=== PATIENT | male | born 1945 | race Caucasian/White ===

== ENCOUNTER → 2017-03-19 | Outpatient (CLI) | payer MEDICARE ==
[2017-03-19 08:16] LABS: CH 32.4; CHCM 33.7; HCT 40.4 % (39.0-53.0); HDW 2.55; HGB 13.4 gm/dL (13.0-17.5); MCHC 33.1 g/dL (31.0-37.0); MCV 96.5 fL (80.0-100.0); Mean Platelet Volume 7.8; RBC 4.18 m/uL (4.30-5.90); RDW 12.9 % (11.5-15.5); WBC 6.7 k/uL (3.8-10.6)
[2017-03-19 08:17] LABS: Appearance,Urine Clear (Clear); Bilirubin,Urine Negative (Negative); Glucose,Urine (UA) Trace (Negative); Ketones,Urine Negative (Negative); Leukocyte Esterase,Urine Negative (Negative); Nitrite,Urine Negative (Negative); PH, Urine 5.5 (5.0-8.0); Protein,Urine Negative (Negative); Specific Gravity,Urine 1.015 (1.001-1.035); UA Billing (MACRO vs. MICRO) CHEM; Urobilinogen,Urine <2.0 mg/dL (<2.0)
[2017-03-19 08:23] LABS: INR 1.1 (<1.2); Partial Thromboplastin Time 24.2 sec (22.0-30.0); Prothrombin Time 10.9 sec (9.0-12.0)
[2017-03-19 08:37] LABS: Calcium 10.4 mg/dL (8.4-10.2); Potassium 4.4 mmol/L (3.5-5.1); Total Bilirubin 0.6 mg/dL (0.2-1.3); Total Protein 7.7 g/dL (6.3-8.2)
== END | disposition home or self-care (01) ==
LOC: LABPAT 07:23
PROVIDERS: ATTEND Orthopaedic Surgery Sports Medicine
DX: Z01.818 Encounter for other preprocedural examination (principal); Z79.01 Long term (current) use of anticoagulants; M19.90 Unspecified osteoarthritis, unspecified site
CPT/HCPCS: 36415; 80053; 81003; 85027; 85610; 85730; 87070

== ENCOUNTER → 2018-10-10 | Outpatient (CLI) | payer MEDICARE ==
--- NOTE | 2018-10-10 11:50 | XR ---
EXAMINATION TYPE: XR chest 2V DATE OF EXAM: 10/10/2018 COMPARISON: Prior chest x-ray dated 10/20/2011 and rib series dated 10/20/2011 HISTORY: Contusion, anterior rib pain TECHNIQUE: Frontal and lateral views of the chest are obtained. FINDINGS: There is no focal air space opacity, pleural effusion, or pneumothorax seen. The cardiac silhouette size is within normal limits. The osseous structures are intact. IMPRESSION: No acute cardiopulmonary process. Bone scan may be of increased sensitivity.
== END | disposition home or self-care (01) ==
LOC: RADXRMAIN 08:57
PROVIDERS: ATTEND Internal Medicine Geriatric Medicine
DX: R05 Cough (principal)
CPT/HCPCS: 71046

== ENCOUNTER 2018-10-15 12:03 | Emergency (ER) | payer MEDICARE ==
[2018-10-15 12:09] VITALS: TEMP 98.4
[2018-10-15] MEDS ORDERED: SODIUM CHLORIDE 0.9% 500 ML 500 ML IV ONE (12:30)
--- NOTE | 2018-10-15 12:48 | ED ---
General Adult HPI - General Chief complaint: GI Bleed Stated complaint: Abn labs Source: patient, RN notes reviewed Mode of arrival: ambulatory Limitations: no limitations - History of Present Illness Initial comments: This is a 73-year-old male who presents emergency Department complaining of not feeling well for a week per patient states she's had no appetite he's losing a little bit of weight and he feels extremely weak. Patient states he went to his doctor's office they told him his liver enzymes were elevated and he was to follow-up in the emergency department. Patient denies any nausea vomiting or diarrhea. Patient denies black or bloody stools. Patient denies any lightheadedness dizziness or near syncopal episode. Patient denies any chest pain difficulty breathing shortness of breath. - Related Data Home Medications Medication Instructions Recorded Confirmed Cetirizine HCl 10 mg PO DAILY 03/26/17 10/15/18 Febuxostat [Uloric] 80 mg PO QAM 03/26/17 10/15/18 Fenofibrate Nanocrystallized 145 mg PO HS 03/26/17 10/15/18 [Fenofibrate] Gabapentin [Neurontin] 600 mg PO HS 03/26/17 10/15/18 Latanoprost Ophth [Xalatan 0.005%] 1 drops BOTH EYES DAILY 03/26/17 10/15/18 Lisinopril-Hctz 20-12.5 mg 1 tab PO BID 03/26/17 10/15/18 [Zestoretic 20-12.5] Niacin 500 mg PO DAILY 03/26/17 10/15/18 Pantoprazole [Protonix] 40 mg PO QAM 03/26/17 10/15/18 Tamsulosin [Flomax] 0.4 mg PO DAILY 03/26/17 10/15/18 Timolol 0.5% Ophth Soln [Timoptic 1 drop BOTH EYES BID 03/26/17 10/15/18 0.5% Ophth Soln] Amoxicillin 500 mg PO TID 10/15/18 10/15/18 Aspirin [[place] Aspirin EC] 81 mg PO DAILY 10/15/18 10/15/18 Cholecalciferol (Vitamin D3) 2,000 unit PO DAILY 10/15/18 10/15/18 [Vitamin D3] Colchicine [Colcrys] 0.6 mg PO DAILY PRN 10/15/18 10/15/18 methylPREDNISolone Dose Pack See Taper PO DAILY 10/15/18 10/15/18 [Medrol Dose Pack] Allergies Allergy/AdvReac Type Severity Reaction Status Date / Time monosodium glutamate [MSG] Allergy Diarrhea Verified 10/15/18 13:02 Review of Systems ROS Statement: Those systems with pertinent positive or pertinent negative responses have been documented in the HPI. ROS Other: All systems not noted in ROS Statement are negative. Past Medical History Past Medical History: Eye Disorder, GERD/Reflux, Hyperlipidemia, Hypertension, Osteoarthritis (OA), Syncope Additional Past Medical History / Comment(s): Bilateral glaucoma. Hx fainting episode 4 yrs ago, thinks due to dehydration. Hx Prostate infection yrs ago. History of Any Multi-Drug Resistant Organisms: None Reported Past Surgical History: Orthopedic Surgery Additional Past Surgical History / Comment(s): Right knee surgery X3. Additional Past Anesthesia/Blood Transfusion Reaction / Comment(s): Had a spinal with 1st knee surgery and had difficulty urinating after. Past Psychological History: No Psychological Hx Reported Smoking Status: Former smoker Past Alcohol Use History: Occasional Past Drug Use History: None Reported - Past Family History Father Family Medical History: Cancer General Exam - General Exam Comments Initial Comments: GENERAL: Patient is well-developed and well-nourished. Patient is nontoxic and well- hydrated and is in no acute distress. ENT: Neck is soft and supple. No significant lymphadenopathy is noted. Oropharynx is clear. Moist mucous membranes. Neck has full range of motion without eliciting any pain. EYES: The sclera were anicteric and conjunctiva were pink and moist. Extraocular movements were intact and pupils were equal round and reactive to light. Eyelids were unremarkable. PULMONARY: Unlabored respirations. Good breath sounds bilaterally. No audible rales rhonchi or wheezing was noted. CARDIOVASCULAR: There is a regular rate and rhythm without any murmurs gallops or rubs. ABDOMEN: Soft and nontender with normal bowel sounds. No palpable organomegaly was noted. There is no palpable pulsatile mass. SKIN: Pale NEUROLOGIC: Patient is alert and oriented x3. Cranial nerves II through XII are grossly intact. Motor and sensory are also intact. Normal speech, volume and content. Symmetrical smile. MUSCULOSKELETAL: Normal extremities with adequate strength and full range of motion. No lower extremity swelling or edema. No calf tenderness. LYMPHATICS: No significant lymphadenopathy is noted PSYCHIATRIC: Normal psychiatric evaluation. Limitations: no limitations Course Vital Signs 10/15/18 10/15/18 10/15/18 12:06 12:55 14:32 Temperature 98.4 F Pulse Rate 111 H 102 H 101 H Respiratory 20 18 18 Rate Blood Pressure 129/79 137/87 136/81 O2 Sat by Pulse 97 96 98 Oximetry Medical Decision Making - Medical Decision Making EKG shows normal sinus rhythm at 97 bpm PA interval is 208 QRSs 138 QT interval 362 QTC is 459. Patient's EKG shows right bundle branch block. Computed tomography scan shows hepatomegaly spot megaly. Abdomen is a was negative. Heterophile was negative. I spoke with Dr. Richardson he agreed the patient should follow-up as an outpatient. - Lab Data Result diagrams: 10/15/18 12:42 10/15/18 12:42 Lab Results 10/15/18 10/15/18 10/15/18 Range/Units 12:42 12:42 12:42 WBC 8.2 (3.8-10.6) k/uL RBC 3.48 L (4.30-5.90) m/uL Hgb 10.8 L (13.0-17.5) gm/dL Hct 31.8 L (39.0-53.0) % MCV 91.4 (80.0-100.0) fL MCH 31.0 (25.0-35.0) pg MCHC 33.9 (31.0-37.0) g/dL RDW 14.8 (11.5-15.5) % Plt Count 349 (150-450) k/uL Neutrophils % (Manual) 55 % Band Neutrophils % 3 % Lymphocytes % (Manual) 30 % Monocytes % (Manual) 11 % Eosinophils % (Manual) 1 % Metamyelocytes % 1 % Myelocytes % 1 % Neutrophils # (Manual) 4.70 (1.3-7.7) k/uL Lymphocytes # (Manual) 2.46 (1.0-4.8) k/uL Monocytes # (Manual) 0.90 (0-1.0) k/uL Eosinophils # (Manual) 0.08 (0-0.7) k/uL Metamyelocytes # (Man) 0.08 H (0) k/uL Myelocytes # (Manual) 0.08 H (0) k/uL Nucleated RBCs 0 (0-0) /100 WBC Manual Slide Review Performed RBC Morphology Normal PT 10.8 (9.0-12.0) sec INR 1.0 (<1.2) APTT 26.2 (22.0-30.0) sec Sodium 133 L (137-145) mmol/L Potassium 4.4 (3.5-5.1) mmol/L Chloride 98 (98-107) mmol/L Carbon Dioxide 24 (22-30) mmol/L Anion Gap 11 mmol/L BUN 26 H (9-20) mg/dL Creatinine 1.57 H (0.66-1.25) mg/dL Est GFR (CKD-EPI)AfAm 50 (>60 ml/min/1.73 sqM) Est GFR (CKD-EPI)NonAf 44 (>60 ml/min/1.73 sqM) Glucose 129 H (74-99) mg/dL Calcium 9.5 (8.4-10.2) mg/dL Magnesium 1.9 (1.6-2.3) mg/dL Total Bilirubin 1.5 H (0.2-1.3) mg/dL AST 165 H (17-59) U/L ALT 389 H (21-72) U/L Alkaline Phosphatase 83 (38-126) U/L Total Protein 7.7 (6.3-8.2) g/dL Albumin 4.1 (3.5-5.0) g/dL Urine Color Urine Appearance (Clear) Urine pH (5.0-8.0) Ur Specific [place] (1.001-1.035) Urine Protein (Negative) Urine Glucose (UA) (Negative) Urine Ketones (Negative) Urine Blood (Negative) Urine Nitrite (Negative) Urine Bilirubin (Negative) Urine Urobilinogen (<2.0) mg/dL Ur Leukocyte Esterase (Negative) Stool Occult Blood (Negative) Hepatitis A IgM Ab Heterophile Antibody (Negative) 10/15/18 10/15/18 10/15/18 Range/Units 12:42 13:11 13:15 WBC (3.8-10.6) k/uL RBC (4.30-5.90) m/uL Hgb (13.0-17.5) gm/dL Hct (39.0-53.0) % MCV (80.0-100.0) fL MCH (25.0-35.0) pg MCHC (31.0-37.0) g/dL RDW (11.5-15.5) % Plt Count (150-450) k/uL Neutrophils % (Manual) % Band Neutrophils % % Lymphocytes % (Manual) % Monocytes % (Manual) % Eosinophils % (Manual) % Metamyelocytes % % Myelocytes % % Neutrophils # (Manual) (1.3-7.7) k/uL Lymphocytes # (Manual) (1.0-4.8) k/uL Monocytes # (Manual) (0-1.0) k/uL Eosinophils # (Manual) (0-0.7) k/uL Metamyelocytes # (Man) (0) k/uL Myelocytes # (Manual) (0) k/uL Nucleated RBCs (0-0) /100 WBC Manual Slide Review RBC Morphology PT (9.0-12.0) sec INR (<1.2) APTT (22.0-30.0) sec Sodium (137-145) mmol/L Potassium (3.5-5.1) mmol/L Chloride (98-107) mmol/L Carbon Dioxide (22-30) mmol/L Anion Gap mmol/L BUN (9-20) mg/dL Creatinine (0.66-1.25) mg/dL Est GFR (CKD-EPI)AfAm (>60 ml/min/1.73 sqM) Est GFR (CKD-EPI)NonAf (>60 ml/min/1.73 sqM) Glucose (74-99) mg/dL Calcium (8.4-10.2) mg/dL Magnesium (1.6-2.3) mg/dL Total Bilirubin (0.2-1.3) mg/dL AST (17-59) U/L ALT (21-72) U/L Alkaline Phosphatase (38-126) U/L Total Protein (6.3-8.2) g/dL Albumin (3.5-5.0) g/dL Urine Color Yellow Urine Appearance Clear (Clear) Urine pH 6.5 (5.0-8.0) Ur Specific [place] 1.010 (1.001-1.035) Urine Protein Negative (Negative) Urine Glucose (UA) Negative (Negative) Urine Ketones Negative (Negative) Urine Blood Negative (Negative) Urine Nitrite Negative (Negative) Urine Bilirubin Negative (Negative) Urine Urobilinogen 3.0 (<2.0) mg/dL Ur Leukocyte Esterase Negative (Negative) Stool Occult Blood Negative (Negative) Hepatitis A IgM Ab Heterophile Antibody Negative (Negative) 10/15/18 Range/Units 14:52 WBC (3.8-10.6) k/uL RBC (4.30-5.90) m/uL Hgb (13.0-17.5) gm/dL Hct (39.0-53.0) % MCV (80.0-100.0) fL MCH (25.0-35.0) pg MCHC (31.0-37.0) g/dL RDW (11.5-15.5) % Plt Count (150-450) k/uL Neutrophils % (Manual) % Band Neutrophils % % Lymphocytes % (Manual) % Monocytes % (Manual) % Eosinophils % (Manual) % Metamyelocytes % % Myelocytes % % Neutrophils # (Manual) (1.3-7.7) k/uL Lymphocytes # (Manual) (1.0-4.8) k/uL Monocytes # (Manual) (0-1.0) k/uL Eosinophils # (Manual) (0-0.7) k/uL Metamyelocytes # (Man) (0) k/uL Myelocytes # (Manual) (0) k/uL Nucleated RBCs (0-0) /100 WBC Manual Slide Review RBC Morphology PT (9.0-12.0) sec INR (<1.2) APTT (22.0-30.0) sec Sodium (137-145) mmol/L Potassium (3.5-5.1) mmol/L Chloride (98-107) mmol/L Carbon Dioxide (22-30) mmol/L Anion Gap mmol/L BUN (9-20) mg/dL Creatinine (0.66-1.25) mg/dL Est GFR (CKD-EPI)AfAm (>60 ml/min/1.73 sqM) Est GFR (CKD-EPI)NonAf (>60 ml/min/1.73 sqM) Glucose (74-99) mg/dL Calcium (8.4-10.2) mg/dL Magnesium (1.6-2.3) mg/dL Total Bilirubin (0.2-1.3) mg/dL AST (17-59) U/L ALT (21-72) U/L Alkaline Phosphatase (38-126) U/L Total Protein (6.3-8.2) g/dL Albumin (3.5-5.0) g/dL Urine Color Urine Appearance (Clear) Urine pH (5.0-8.0) Ur Specific [place] (1.001-1.035) Urine Protein (Negative) Urine Glucose (UA) (Negative) Urine Ketones (Negative) Urine Blood (Negative) Urine Nitrite (Negative) Urine Bilirubin (Negative) Urine Urobilinogen (<2.0) mg/dL Ur Leukocyte Esterase (Negative) Stool Occult Blood (Negative) Hepatitis A IgM Ab NEGATIVE Heterophile Antibody (Negative) Disposition Clinical Impression: Weakness Disposition: HOME SELF-CARE Condition: Good Instructions (If sedation given, give patient instructions): Weakness (ED) Is patient prescribed a controlled substance at d/c from ED?: No Referrals: Herbie Langford MD [Primary Care Provider] - 1-2 days Time of Disposition: 16:13
[2018-10-15 12:56] VITALS: RESP 18
[2018-10-15 13:07] LABS: Albumin 4.1 g/dL (3.5-5.0); Calcium 9.5 mg/dL (8.4-10.2); Magnesium 1.9 mg/dL (1.6-2.3); Potassium 4.4 mmol/L (3.5-5.1); Total Bilirubin 1.5 mg/dL (0.2-1.3); Total Protein 7.7 g/dL (6.3-8.2)
[2018-10-15 13:08] LABS: HCT 31.8 % (39.0-53.0); HGB 10.8 gm/dL (13.0-17.5); MCHC 33.9 g/dL (31.0-37.0); MCV 91.4 fL (80.0-100.0); Mean Platelet Volume 7.6; Platelet Count 349 k/uL (150-450); RBC 3.48 m/uL (4.30-5.90); RDW 14.8 % (11.5-15.5); WBC 8.2 k/uL (3.8-10.6)
[2018-10-15 13:14] LABS: Partial Thromboplastin Time 26.2 sec (22.0-30.0); Prothrombin Time 10.8 sec (9.0-12.0)
[2018-10-15 13:49] LABS: Appearance,Urine Clear (Clear); Bilirubin,Urine Negative (Negative); Blood,Urine Negative (Negative); Color,Urine Yellow; Glucose,Urine (UA) Negative (Negative); Ketones,Urine Negative (Negative); Leukocyte Esterase,Urine Negative (Negative); Nitrite,Urine Negative (Negative); PH, Urine 6.5 (5.0-8.0); Protein,Urine Negative (Negative)
[2018-10-15 14:14] LABS: Band Neutrophils % 3 %; Eosinophils # (M) 0.08 k/uL (0-0.7); Lymphocytes # (M) 2.46 k/uL (1.0-4.8); Metamyelocytes # (M) 0.08 k/uL (0); Metamyelocytes % 1 %; Myelocytes # (M) 0.08 k/uL (0); Myelocytes % 1 %; Neutrophils % (M) 55 %; Nucleated Red Blood Cells 0 /100 WBC (0-0); Total Cells Counted 200
[2018-10-15 14:33] VITALS: PULSE 101
--- NOTE | 2018-10-15 14:35 | CT ---
EXAMINATION TYPE: CT abdomen pelvis w con DATE OF EXAM: 10/15/2018 COMPARISON: None HISTORY: Abnormal Labwork CT DLP: 1078 mGycm CONTRAST: CT scan of the abdomen and pelvis is performed without Oral Contrast and with IV Contrast, patient in jected with 80 mL of Isovue 300. FINDINGS: LUNG BASES-: No visible nodule. No infiltrate. LIVER/GB: No calcified gallstones. There is evidence of hepatic steatosis with hepatic enlargement noted. No space occupying hepatic lesion. Biliary tree is of normal caliber. PANCREAS: No inflammation. No distinct mass. SPLEEN: Cardiomegaly with craniocaudal measurement of 14.9 cm. No lesion seen. ADRENALS: No nodule. No thickening. KIDNEYS/BLADDER: No hydronephrosis. No nephrolithiasis. No distinct renal mass. Urinary bladder g rossly unremarkable. BOWEL: Normal appendix. Normal bowel caliber. No inflammation. Sigmoid diverticulosis without diver ticulitis. GENITAL ORGANS: No gross abnormality. LYMPH NODES: No greater than 1cm abdominal or pelvic lymph nodes are appreciated. AORTA: No significant abnormality. OSSEOUS STRUCTURES: No significant abnormality is seen. OTHER: No significant additional abnormality is seen. IMPRESSION: 1. Sigmoid diverticulosis without diverticulitis. 2. Hepatic steatosis with hepatomegaly. 3. Splenomegaly.
[2018-10-15 15:37] LABS: Hepatitis A AB IgM Index 0.01; Hepatitis A Antibody IgM NEGATIVE
[2018-10-15 16:51] VITALS: BP 137/80
[2018-10-16 04:34] LABS: Hepatitis B Core IgM Reactive (Non-Reactive)
== END 2018-10-15 16:25 | disposition home or self-care (01) ==
LOC: EC 12:03
DX: R53.1 Weakness (principal); R16.0 Hepatomegaly, not elsewhere classified; K92.2 Gastrointestinal hemorrhage, unspecified; I45.10 Unspecified right bundle-branch block; K21.9 Gastro-esophageal reflux disease without esophagitis; I10 Essential (primary) hypertension; E78.5 Hyperlipidemia, unspecified; H40.9 Unspecified glaucoma; Z87.891 Personal history of nicotine dependence; Z79.82 Long term (current) use of aspirin; Z79.52 Long term (current) use of systemic steroids; Z79.899 Other long term (current) drug therapy; Z88.8 Allergy status to other drugs, medicaments and biological substances
CPT/HCPCS: 99284; 96360; 36415; 93005; 80053; 80074; 83735; 85025; 85610; 85730; 86308; 82272; 81003; 74177; Q9967

== ENCOUNTER 2018-10-18 10:30 | Observation (INO) | payer MEDICARE ==
[2018-10-18] MEDS ORDERED: SODIUM CHLORIDE 0.9% 500 ML 500 ML IV ONE ×2 (10:59→13:18)
--- NOTE | 2018-10-18 11:34 | XR ---
EXAMINATION TYPE: XR chest 2V DATE OF EXAM: 10/18/2018 COMPARISON: Prior chest x-ray 10/10/2018 HISTORY: Difficulty breathing TECHNIQUE: Frontal and lateral views of the chest are obtained. FINDINGS: There are overlying cardiac leads. There is no focal air space opacity, pleural effusion, o r pneumothorax seen. The cardiac silhouette size is within normal limits. The osseous structures a re intact. IMPRESSION: No acute cardiopulmonary process.
--- NOTE | 2018-10-18 11:42 | ED ---
General Adult HPI - General Chief complaint: Weakness Stated complaint: Weakness Time Seen by Provider: 10/18/18 10:41 Source: patient, EMS, RN notes reviewed, old records reviewed Mode of arrival: EMS Limitations: no limitations - History of Present Illness Initial comments: 73-year-old male presented for evaluation generalized weakness and fatigue. P bertrand has had several weeks of increased fatigue. Over the past 4 days he has had severe generalized weakness. He was recently diagnosed with hepatitis B. He's had nausea with no abdominal pain. No vomiting. He denies chest pain. He states he does have exertional dyspnea. Denies lower extremity pain or swelling. Denies rash. - Related Data Home Medications Medication Instructions Recorded Confirmed Cetirizine HCl 10 mg PO DAILY 03/26/17 10/18/18 Febuxostat [Uloric] 80 mg PO QAM 03/26/17 10/18/18 Fenofibrate Nanocrystallized 145 mg PO HS 03/26/17 10/18/18 [Fenofibrate] Gabapentin [Neurontin] 600 mg PO HS 03/26/17 10/18/18 Latanoprost Ophth [Xalatan 0.005%] 1 drops BOTH EYES HS 03/26/17 10/18/18 Lisinopril-Hctz 20-12.5 mg 1 tab PO BID 03/26/17 10/18/18 [Zestoretic 20-12.5] Niacin 500 mg PO DAILY 03/26/17 10/18/18 Pantoprazole [Protonix] 40 mg PO DAILY 03/26/17 10/18/18 Tamsulosin [Flomax] 0.4 mg PO DAILY 03/26/17 10/18/18 Aspirin [[place] Aspirin EC] 81 mg PO DAILY 10/15/18 10/18/18 Cholecalciferol (Vitamin D3) 2,000 unit PO DAILY 10/15/18 10/18/18 [Vitamin D3] Colchicine [Colcrys] 0.6 mg PO DAILY PRN 10/15/18 10/18/18 methylPREDNISolone Dose Pack See Taper PO DAILY 10/15/18 10/18/18 [Medrol Dose Pack] Loteprednol Etabonate [Alrex] 1 drop RIGHT EYE TID 10/18/18 10/18/18 Allergies Allergy/AdvReac Type Severity Reaction Status Date / Time monosodium glutamate [MSG] AdvReac Diarrhea Verified 10/18/18 11:39 Review of Systems ROS Statement: Those systems with pertinent positive or pertinent negative responses have been documented in the HPI. ROS Other: All systems not noted in ROS Statement are negative. Past Medical History Past Medical History: Eye Disorder, GERD/Reflux, Hyperlipidemia, Hypertension, Osteoarthritis (OA), Syncope Additional Past Medical History / Comment(s): Bilateral glaucoma. Hx fainting episode 4 yrs ago, thinks due to dehydration. Hx Prostate infection yrs ago. History of Any Multi-Drug Resistant Organisms: None Reported Past Surgical History: Orthopedic Surgery Additional Past Surgical History / Comment(s): Right knee surgery X3. Additional Past Anesthesia/Blood Transfusion Reaction / Comment(s): Had a spinal with 1st knee surgery and had difficulty urinating after. Past Psychological History: No Psychological Hx Reported Smoking Status: Former smoker Past Alcohol Use History: Occasional Past Drug Use History: None Reported - Past Family History Father Family Medical History: Cancer General Exam Limitations: no limitations General appearance: alert, in no apparent distress Head exam: Present: atraumatic, normocephalic Eye exam: Present: normal appearance, PERRL ENT exam: Present: normal exam Neck exam: Present: normal inspection. Absent: tenderness, meningismus Respiratory exam: Present: normal lung sounds bilaterally. Absent: respiratory distress, wheezes Cardiovascular Exam: Present: regular rate, normal rhythm GI/Abdominal exam: Present: soft. Absent: distended, tenderness, guarding Extremities exam: Present: normal inspection, normal capillary refill. Absent: pedal edema Back exam: Present: normal inspection, full ROM Neurological exam: Present: alert, oriented X3, CN II-XII intact. Absent: motor sensory deficit Psychiatric exam: Present: normal affect, normal mood Skin exam: Present: warm, dry, intact. Absent: cyanosis, diaphoretic Course Vital Signs 10/18/18 10:39 Temperature 98.2 F Pulse Rate 100 Respiratory 17 Rate Blood Pressure 140/92 O2 Sat by Pulse 100 Oximetry EKG Findings - EKG Comments: EKG Findings:: EKG: Normal sinus rhythm, right bundle branch block, rate 97, MN interval 182, QRS duration 126, QTC 444, no ST segment elevation Medical Decision Making - Medical Decision Making 73-year-old male presenting with generalized weakness, dehydration. History of recent hepatitis B diagnosis. He does have mildly elevated transaminitis although these are down trending. Bilirubin is normal. Hemoglobin stable, no leukocytosis. Patient's given IV hydration emergency department. He is evaluated by Dr. Richardson, in the emergency department and will be admitted for further evaluation and treatment. Gastroenterology placed on consult. - Lab Data Result diagrams: 10/18/18 11:06 10/18/18 11:06 Lab Results 10/18/18 10/18/18 10/18/18 Range/Units 11:06 11:06 11:06 WBC 10.1 (3.8-10.6) k/uL RBC 3.65 L (4.30-5.90) m/uL Hgb 11.6 L (13.0-17.5) gm/dL Hct 34.0 L (39.0-53.0) % MCV 93.2 (80.0-100.0) fL MCH 31.9 (25.0-35.0) pg MCHC 34.2 (31.0-37.0) g/dL RDW 15.9 H (11.5-15.5) % Plt Count 410 (150-450) k/uL Neutrophils % (Manual) 66 % Band Neutrophils % 1 % Lymphocytes % (Manual) 26 % Monocytes % (Manual) 6 % Eosinophils % (Manual) 1 % Metamyelocytes % 1 % Myelocytes % 1 % Neutrophils # (Manual) 6.70 (1.3-7.7) k/uL Lymphocytes # (Manual) 2.63 (1.0-4.8) k/uL Monocytes # (Manual) 0.61 (0-1.0) k/uL Eosinophils # (Manual) 0.10 (0-0.7) k/uL Metamyelocytes # (Man) 0.10 H (0) k/uL Myelocytes # (Manual) 0.10 H (0) k/uL Nucleated RBCs 0 (0-0) /100 WBC Manual Slide Review Performed Poikilocytosis (manual Present Anisocytosis (manual) Present PT (9.0-12.0) sec INR (<1.2) APTT (22.0-30.0) sec Sodium 133 L (137-145) mmol/L Potassium 4.1 (3.5-5.1) mmol/L Chloride 100 (98-107) mmol/L Carbon Dioxide 20 L (22-30) mmol/L Anion Gap 13 mmol/L BUN 35 H (9-20) mg/dL Creatinine 1.49 H (0.66-1.25) mg/dL Est GFR (CKD-EPI)AfAm 54 (>60 ml/min/1.73 sqM) Est GFR (CKD-EPI)NonAf 46 (>60 ml/min/1.73 sqM) Glucose 118 H (74-99) mg/dL Plasma Lactic Acid Jet (0.7-2.0) mmol/L Calcium 9.9 (8.4-10.2) mg/dL Magnesium 1.8 (1.6-2.3) mg/dL Total Bilirubin 1.1 (0.2-1.3) mg/dL AST 54 (17-59) U/L ALT 181 H (21-72) U/L Alkaline Phosphatase 66 (38-126) U/L Troponin I (0.000-0.034) ng/mL NT-Pro-B Natriuret Pep 88 pg/mL Total Protein 8.0 (6.3-8.2) g/dL Albumin 4.3 (3.5-5.0) g/dL Urine Color Urine Appearance (Clear) Urine pH (5.0-8.0) Ur Specific [place] (1.001-1.035) Urine Protein (Negative) Urine Glucose (UA) (Negative) Urine Ketones (Negative) Urine Blood (Negative) Urine Nitrite (Negative) Urine Bilirubin (Negative) Urine Urobilinogen (<2.0) mg/dL Ur Leukocyte Esterase (Negative) 10/18/18 10/18/18 10/18/18 Range/Units 11:06 11:06 11:06 WBC (3.8-10.6) k/uL RBC (4.30-5.90) m/uL Hgb (13.0-17.5) gm/dL Hct (39.0-53.0) % MCV (80.0-100.0) fL MCH (25.0-35.0) pg MCHC (31.0-37.0) g/dL RDW (11.5-15.5) % Plt Count (150-450) k/uL Neutrophils % (Manual) % Band Neutrophils % % Lymphocytes % (Manual) % Monocytes % (Manual) % Eosinophils % (Manual) % Metamyelocytes % % Myelocytes % % Neutrophils # (Manual) (1.3-7.7) k/uL Lymphocytes # (Manual) (1.0-4.8) k/uL Monocytes # (Manual) (0-1.0) k/uL Eosinophils # (Manual) (0-0.7) k/uL Metamyelocytes # (Man) (0) k/uL Myelocytes # (Manual) (0) k/uL Nucleated RBCs (0-0) /100 WBC Manual Slide Review Poikilocytosis (manual Anisocytosis (manual) PT 11.1 (9.0-12.0) sec INR 1.0 (<1.2) APTT 25.8 (22.0-30.0) sec Sodium (137-145) mmol/L Potassium (3.5-5.1) mmol/L Chloride (98-107) mmol/L Carbon Dioxide (22-30) mmol/L Anion Gap mmol/L BUN (9-20) mg/dL Creatinine (0.66-1.25) mg/dL Est GFR (CKD-EPI)AfAm (>60 ml/min/1.73 sqM) Est GFR (CKD-EPI)NonAf (>60 ml/min/1.73 sqM) Glucose (74-99) mg/dL Plasma Lactic Acid Jet 2.1 H* (0.7-2.0) mmol/L Calcium (8.4-10.2) mg/dL Magnesium (1.6-2.3) mg/dL Total Bilirubin (0.2-1.3) mg/dL AST (17-59) U/L ALT (21-72) U/L Alkaline Phosphatase (38-126) U/L Troponin I <0.012 (0.000-0.034) ng/mL NT-Pro-B Natriuret Pep pg/mL Total Protein (6.3-8.2) g/dL Albumin (3.5-5.0) g/dL Urine Color Urine Appearance (Clear) Urine pH (5.0-8.0) Ur Specific [place] (1.001-1.035) Urine Protein (Negative) Urine Glucose (UA) (Negative) Urine Ketones (Negative) Urine Blood (Negative) Urine Nitrite (Negative) Urine Bilirubin (Negative) Urine Urobilinogen (<2.0) mg/dL Ur Leukocyte Esterase (Negative) 10/18/18 Range/Units 11:06 WBC (3.8-10.6) k/uL RBC (4.30-5.90) m/uL Hgb (13.0-17.5) gm/dL Hct (39.0-53.0) % MCV (80.0-100.0) fL MCH (25.0-35.0) pg MCHC (31.0-37.0) g/dL RDW (11.5-15.5) % Plt Count (150-450) k/uL Neutrophils % (Manual) % Band Neutrophils % % Lymphocytes % (Manual) % Monocytes % (Manual) % Eosinophils % (Manual) % Metamyelocytes % % Myelocytes % % Neutrophils # (Manual) (1.3-7.7) k/uL Lymphocytes # (Manual) (1.0-4.8) k/uL Monocytes # (Manual) (0-1.0) k/uL Eosinophils # (Manual) (0-0.7) k/uL Metamyelocytes # (Man) (0) k/uL Myelocytes # (Manual) (0) k/uL Nucleated RBCs (0-0) /100 WBC Manual Slide Review Poikilocytosis (manual Anisocytosis (manual) PT (9.0-12.0) sec INR (<1.2) APTT (22.0-30.0) sec Sodium (137-145) mmol/L Potassium (3.5-5.1) mmol/L Chloride (98-107) mmol/L Carbon Dioxide (22-30) mmol/L Anion Gap mmol/L BUN (9-20) mg/dL Creatinine (0.66-1.25) mg/dL Est GFR (CKD-EPI)AfAm (>60 ml/min/1.73 sqM) Est GFR (CKD-EPI)NonAf (>60 ml/min/1.73 sqM) Glucose (74-99) mg/dL Plasma Lactic Acid Jet (0.7-2.0) mmol/L Calcium (8.4-10.2) mg/dL Magnesium (1.6-2.3) mg/dL Total Bilirubin (0.2-1.3) mg/dL AST (17-59) U/L ALT (21-72) U/L Alkaline Phosphatase (38-126) U/L Troponin I (0.000-0.034) ng/mL NT-Pro-B Natriuret Pep pg/mL Total Protein (6.3-8.2) g/dL Albumin (3.5-5.0) g/dL Urine Color Yellow Urine Appearance Clear (Clear) Urine pH 7.5 (5.0-8.0) Ur Specific [place] 1.010 (1.001-1.035) Urine Protein Negative (Negative) Urine Glucose (UA) Negative (Negative) Urine Ketones Negative (Negative) Urine Blood Negative (Negative) Urine Nitrite Negative (Negative) Urine Bilirubin Negative (Negative) Urine Urobilinogen <2.0 (<2.0) mg/dL Ur Leukocyte Esterase Negative (Negative) Disposition Clinical Impression: Weakness, Hepatitis Disposition: ADMITTED IP TO THIS [facility] Condition: Stable Is patient prescribed a controlled substance at d/c from ED?: No Referrals: Herbie Langford MD [Primary Care Provider] - 1-2 days Decision to Admit Reason: Admit from EC Decision Date: 10/18/18 Decision Time: 14:00
[2018-10-18 11:45] LABS: Appearance,Urine Clear (Clear); Bilirubin,Urine Negative (Negative); Blood,Urine Negative (Negative); Color,Urine Yellow; Glucose,Urine (UA) Negative (Negative); Ketones,Urine Negative (Negative); Leukocyte Esterase,Urine Negative (Negative); Nitrite,Urine Negative (Negative); PH, Urine 7.5 (5.0-8.0); Protein,Urine Negative (Negative); Urobilinogen,Urine <2.0 mg/dL (<2.0)
[2018-10-18 11:48] LABS: Partial Thromboplastin Time 25.8 sec (22.0-30.0); Prothrombin Time 11.1 sec (9.0-12.0)
[2018-10-18 11:53] LABS: Albumin 4.3 g/dL (3.5-5.0); Calcium 9.9 mg/dL (8.4-10.2); Magnesium 1.8 mg/dL (1.6-2.3); Potassium 4.1 mmol/L (3.5-5.1); Total Bilirubin 1.1 mg/dL (0.2-1.3)
[2018-10-18 11:59] LABS: HGB 11.6 gm/dL (13.0-17.5); MCH 31.9 pg (25.0-35.0); MCHC 34.2 g/dL (31.0-37.0); MCV 93.2 fL (80.0-100.0); Mean Platelet Volume 7.7; Platelet Count 410 k/uL (150-450); RBC 3.65 m/uL (4.30-5.90); RDW 15.9 % (11.5-15.5); WBC 10.1 k/uL (3.8-10.6)
[2018-10-18 12:23] LABS: Band Neutrophils % 1 %; Lymphocytes # (M) 2.63 k/uL (1.0-4.8); Metamyelocytes % 1 %; Monocytes # (M) 0.61 k/uL (0-1.0); Myelocytes % 1 %; Neutrophils % (M) 66 %; Nucleated Red Blood Cells 0 /100 WBC (0-0); Total Cells Counted 200
[2018-10-18 12:27] LABS: Anisocytosis (M) Present; Poikilocytosis (M) Present
[2018-10-18] MEDS ORDERED: NALOXONE 0.4 MG/ML 1 ML VIAL IV PRN (13:57)
[2018-10-18] MEDS: SODIUM CHLORIDE 0.9% 1,000 ML IV SCH (14:09)
[2018-10-18] MEDS ORDERED: COLCHICINE 0.6 MG EACH PO PRN (14:24)
--- NOTE | 2018-10-18 14:24 | P.HPIM ---
History of Present Illness H&P Date: 10/18/18 Chief Complaint: Generalized weakness/acute hepatitis B. This is a 73-year-old male one of Dr. Langford with a previous medical history significant for hypertension and hypertensive cardiovascular disease with left ventricular hypertrophy, hyperlipidemia, chronic kidney disease stage III, GERD, glaucoma, out, patient was recently diagnosed of having acute hepatitis be based on recent serology in the office with a positive hepatitis B core IgM, patient was seen earlier about a week ago in the office for what appears to be in acute sinusitis he was placed on oral antibiotic as well as Medrol Dosepak and he was seen in the emergency department at [facility] last week because of generalized fatigue and weakness patient was feeling extremely exhausted not able to do anything patient did have an elevation of AST and ALT that got better over the last few days however he was brought into the emergency department at [facility] today because she exhausted and not able to do anything at this point in time, his liver enzymes are better and he has no elevation of bilirubin and he has no elevation of ammonia level his albumin level as well as protein level and INR were normal, he appears to have mild icterus in the sclerae without significant jaundice in the body, patient will be admitted to the hospital for evaluation by gastroneurology. Review of Systems Constitutional: Reports fatigue, Reports lethargy, Reports malaise, Reports weakness, Denies chills, Denies chronic headaches Eyes: denies blurred vision, denies bulging eye, denies decreased vision, denies diplopia, denies discharge Ears: deny: decreased hearing Ears, nose, mouth and throat: Denies dysphagia, Denies neck lump, Denies swelling in throat, Denies sore throat Cardiovascular: Denies chest pain, Denies decreased exercise tolerance, Denies dyspnea on exertion, Denies leg edema, Denies lightheadedness, Denies rapid heart beat, Denies shortness of breath, Denies syncope Respiratory: Denies congestion, Denies cough, Denies cough with sputum, Denies home oxygen, Denies sleep apnea, Denies snoring, Denies wheezing Gastrointestinal: Reports abdominal pain, Reports diarrhea, Reports loss of appetite, Reports nausea, Denies belching, Denies BRBPR, Denies change in bowel habits, Denies excessive gas, Denies heartburn, Denies hematemesis, Denies hematochezia, Denies melena, Denies vomiting Musculoskeletal: Denies myalgias Musculoskeletal: absent: ankle pain, ankle stiffness, ankle swelling, elbow pain, elbow stiffness, elbow swelling, foot pain, foot stiffness, foot swelling, hand pain, hand stiffness, hand swelling, hip pain, hip stiffness, hip swelling, knee pain, knee stiffness, knee swelling, shoulder pain, shoulder stiffness, shoulder swelling, wrist pain, wrist stiffness, wrist swelling Integumentary: Denies pruritus, Denies rash Neurological: Reports weakness, Denies numbness Psychiatric: Denies anxiety, Denies depression Endocrine: Denies fatigue, Denies weight change Past Medical History Past Medical History: Eye Disorder, GERD/Reflux, Hyperlipidemia, Hypertension, O steoarthritis (OA), Prostate Disorder, Renal Disease, Syncope Additional Past Medical History / Comment(s): Bilateral glaucoma. Hx fainting episode 4 yrs ago, thinks due to dehydration. Hx Prostate infection yrs ago. History of Any Multi-Drug Resistant Organisms: None Reported Past Surgical History: Orthopedic Surgery Additional Past Surgical History / Comment(s): Right knee surgery X3. Additional Past Anesthesia/Blood Transfusion Reaction / Comment(s): Had a spinal with 1st knee surgery and had difficulty urinating after. Past Psychological History: No Psychological Hx Reported Smoking Status: Former smoker (Patient is smoking about a pack every day as well as over the years quit in 1969.) Past Alcohol Use History: Occasional Past Drug Use History: None Reported - Past Family History Father Family Medical History: Cancer (Father at age 62 from lung cancer related to asbestos.) Mother Family Medical History: Coronary Artery Disease (CAD) (Mother at age 95 from dementia she also had history of CAD and had a stent put and back in her 60s.) Brother(s) Family Medical History: No Reported History (Patient has 2 brothers no major medical problems.) Sister(s) Family Medical History: No Reported History (Patient has one sister no major medical problems.) Son(s) Family Medical History: No Reported History (Patient has one son no major medical problems.) Medications and Allergies Home Medications Medication Instructions Recorded Confirmed Type Cetirizine HCl 10 mg PO DAILY 03/26/17 10/18/18 History Febuxostat [Uloric] 80 mg PO QAM 03/26/17 10/18/18 History Fenofibrate Nanocrystallized 145 mg PO HS 03/26/17 10/18/18 History [Fenofibrate] Gabapentin [Neurontin] 600 mg PO HS 03/26/17 10/18/18 History Latanoprost Ophth [Xalatan 0.005%] 1 drops BOTH EYES HS 03/26/17 10/18/18 History Lisinopril-Hctz 20-12.5 mg 1 tab PO BID 03/26/17 10/18/18 History [Zestoretic 20-12.5] Niacin 500 mg PO DAILY 03/26/17 10/18/18 History Pantoprazole [Protonix] 40 mg PO DAILY 03/26/17 10/18/18 History Tamsulosin [Flomax] 0.4 mg PO DAILY 03/26/17 10/18/18 History Aspirin [[place] Aspirin EC] 81 mg PO DAILY 10/15/18 10/18/18 History Cholecalciferol (Vitamin D3) 2,000 unit PO DAILY 10/15/18 10/18/18 History [Vitamin D3] Colchicine [Colcrys] 0.6 mg PO DAILY PRN 10/15/18 10/18/18 History methylPREDNISolone Dose Pack See Taper PO DAILY 10/15/18 10/18/18 History [Medrol Dose Pack] Loteprednol Etabonate [Alrex] 1 drop RIGHT EYE TID 10/18/18 10/18/18 History Allergies Allergy/AdvReac Type Severity Reaction Status Date / Time monosodium glutamate [MSG] AdvReac Diarrhea Verified 10/18/18 11:39 Physical Exam Vitals: Vital Signs Temp Pulse Resp BP Pulse Ox 10/18/18 10:39 98.2 F 100 17 140/92 100 Intake and Output 10/17/18 10/18/18 10/18/18 22:59 06:59 14:59 Other: Weight 88.451 kg - Constitutional General appearance: average body habitus, no acute distress - EENT Eyes: abnormal pupil, EOMI, PERRLA, no ptosis, scleral icterus ENT: hearing grossly normal, NA/AT, normal oropharynx, no thrush Ears: bilateral: normal - Neck Neck: no lymphadenopathy, normal ROM, no rigidity, no stridor, no thyromegaly Carotids: bilateral: upstroke normal Thyroid: bilateral: normal size - Respiratory Respiratory: bilateral: diminished, negative: dullness, rales, rhonchi, wheezing, prolonged expiration, prolonged inspiration - Cardiovascular Rhythm: regular Heart sounds: normal: S1, S2 Abnormal Heart Sounds: no systolic murmur, no diastolic murmur, no rub, no S3 Gallop, no S4 Gallop, no click - Gastrointestinal General gastrointestinal: no distended, no hepatomegaly, normal bowel sounds, soft, no splenomegaly, tenderness (Right upper quadrant and left upper quadrant tenderness.), no umbilical hernia, no ventral hernia - Integumentary Integumentary: normal, normal turgor - Neurologic Neurologic: CNII-XII intact - Musculoskeletal Musculoskeletal: gait normal, generalized weakness, strength equal bilaterally - Psychiatric Psychiatric: A&O x's 3, appropriate affect, intact judgment & insight Results CBC & Chem 7: 10/18/18 11:06 10/18/18 11:06 Labs: Abnormal Lab Results - Last 24 Hours (Table) 10/18/18 10/18/18 10/18/18 Range/Units 11:06 11:06 11:06 RBC 3.65 L (4.30-5.90) m/uL Hgb 11.6 L (13.0-17.5) gm/dL Hct 34.0 L (39.0-53.0) % RDW 15.9 H (11.5-15.5) % Metamyelocytes # (Man) 0.10 H (0) k/uL Myelocytes # (Manual) 0.10 H (0) k/uL Sodium 133 L (137-145) mmol/L Carbon Dioxide 20 L (22-30) mmol/L BUN 35 H (9-20) mg/dL Creatinine 1.49 H (0.66-1.25) mg/dL Glucose 118 H (74-99) mg/dL Plasma Lactic Acid Jet 2.1 H* (0.7-2.0) mmol/L ALT 181 H (21-72) U/L Thrombosis Risk Factor Assmnt - DVT/VTE Prophylaxis DVT/VTE Prophylaxis: Pharmacologic Prophylaxis ordered, Mechanical Prophylaxis ordered Assessment and Plan Assessment: Assessment and plan: 1. Acute hepatitis B based on results of serology with positive hepatitis B c ore antibody IgM. Patient does not have an evidence of acute fulminant hepatitis at this time, he will be started on IV fluid in the form of normal saline at 75 mL an hour, patient will be seen in consultation by gastroenterology, ultrasound of the liver will be done, I spoke with the patient and his at the bedside that 95% of the patient will achieve complete remission without any treatment and he is unlikely to have a chronic carrier state due to his age as this is adversely related to the patient age, patient will be seen in consultation by hepatology for further recommendation. 2. Acute kidney injury and top of chronic kidney disease stage III. Change lisinopril hydrochlorothiazide to plain lisinopril and discontinue hydrochlorothiazide monitor the patient CMP. 3. Hypertension and hypertensive cardiovascular disease. Continue patient on lisinopril 20 mg orally twice every day. 4. History of gout. Continue patient on Uloric 80 mg orally once every day. 5. Enlarged prostate. Continue Flomax 0.4 mg orally once every day. 6. Mild anemia. Monitor the patient's CBC. 7. GERD. Continue Prilosec 20 mg orally once every day. 8. Generalized weakness likely related to acute hepatitis B. We'll continue to monitor. 9. DVT prophylaxis. Heparin 5000 units subcutaneously every 12 hours. 10. GI prophylaxis. Continue patient on PPI. 11. Admitted as inpatient. Estimate a length of stay 2 midnights. 12. Patient is full code.
--- NOTE | 2018-10-18 16:47 | US ---
EXAMINATION TYPE: US abdomen complete DATE OF EXAM: 10/18/2018 COMPARISON: CLINICAL HISTORY: Pain. NPO, epigastric pain EXAM MEASUREMENTS: Liver Length: 19.3 cm Gallbladder Wall: 0.1 cm CHD: 0.4 cm Spleen: 12.7 cm Right Kidney: 11.7 x 5.9 x 6.4 cm Left Kidney: 10.6 x 4.9 x 5.9 cm Pancreas: Tail obscured by overlying bowel gas. Appears echogenic in appearance Liver: Enlarged in size, coarse and heterogenous. Appears slightly lobular. Gallbladder: wnl Evidence for sonographic Victor's sign: neg CBD: Obscured by overlying bowel gas CHD: wnl Spleen: wnl Right Kidney: wnl Left Kidney: wnl Upper IVC: Limited visualization Abd Aorta: Limited visualization of proximal portion due to overlying bowel gas Kidneys show no hydronephrosis, there is normal cortical medullary differentiation. There is no ascites. IMPRESSION: Correlate for hepatic steatosis. There is hepatomegaly. Some limitations the exam.
[2018-10-18] MEDS: LOTEPREDNOL ETABONATE RIGHT EYE SCH ×2 (19:27→23:38)
[2018-10-18] MEDS: HEPARIN SODIUM,PORCINE 5,000 UNIT/ML 1 ML VIAL SQ SCH ×2 (20:18→23:38)
[2018-10-18] MEDS: LISINOPRIL 20 MG TAB PO SCH (20:19)
[2018-10-18] MEDS ORDERED: LATANOPROST 0.005% OPHTH DROPS 2.5 ML BTL BOTH EYES SCH (21:00)
[2018-10-19] MEDS: SODIUM CHLORIDE 0.9% 1,000 ML IV SCH (04:01)
[2018-10-19] MEDS ORDERED: PANTOPRAZOLE 40 MG TABLET PO SCH (07:30)
[2018-10-19] MEDS: LOTEPREDNOL ETABONATE RIGHT EYE SCH ×2 (08:33→14:56)
[2018-10-19] MEDS: LISINOPRIL 20 MG TAB PO SCH (08:33)
[2018-10-19] MEDS: HEPARIN SODIUM,PORCINE 5,000 UNIT/ML 1 ML VIAL SQ SCH (08:33)
[2018-10-19 08:49] LABS: HCT 35.3 % (39.0-53.0); HGB 11.2 gm/dL (13.0-17.5); MCH 30.7 pg (25.0-35.0); MCHC 31.7 g/dL (31.0-37.0); MCV 96.7 fL (80.0-100.0); Platelet Count 339 k/uL (150-450); RBC 3.65 m/uL (4.30-5.90); RDW 14.8 % (11.5-15.5); WBC 5.5 k/uL (3.8-10.6)
[2018-10-19] MEDS ORDERED: TAMSULOSIN 0.4 MG CAP.ER.24H PO SCH (09:00)
[2018-10-19] MEDS ORDERED: LORATADINE 10 MG TAB PO SCH (09:00)
[2018-10-19] MEDS ORDERED: CHOLECALCIFEROL 1,000 UNIT TAB PO SCH (09:00)
[2018-10-19] MEDS ORDERED: ASPIRIN 81 MG PO SCH (09:00)
[2018-10-19] MEDS ORDERED: ALLOPURINOL 100 MG TAB PO SCH (09:00)
[2018-10-19 09:06] LABS: Calcium 9.2 mg/dL (8.4-10.2); Potassium 4.7 mmol/L (3.5-5.1); Total Protein 7.5 g/dL (6.3-8.2)
[2018-10-19 11:30] LABS: Band Neutrophils % 1 %; Monocytes # (M) 0.44 k/uL (0-1.0); Neutrophils % (M) 62 %; Nucleated Red Blood Cells 0 /100 WBC (0-0); Total Cells Counted 100
[2018-10-19 12:39] VITALS: BP 126/80; PULSE 91; RESP 18; TEMP 98.8
--- NOTE | 2018-10-19 13:35 | CONS ---
CONSULTATION DATE OF SERVICE: October 19, 2018. REQUESTING PHYSICIAN: Dr. Langford. REASON FOR CONSULTATION: Generalized weakness and acute hepatitis B infection. HISTORY OF PRESENTING ILLNESS: The patient is a 73 -year-old pleasant white male who was admitted to the hospital because of severe fatigue, weakness, decreased appetite on and off for the last 4 weeks duration. The patient was seen by Dr. Langford on an outpatient basis about 4 weeks ago when he presented with severe fatigue, weakness, and was noted to have elevated LFTs. Further workup in the office showed positive hepatitis serologies for acute hepatitis B infection. Apparently, he was noted to have a hepatitis B core IgM antibody that was positive. Around the same time, he also had cardia that was negative because of his ongoing symptoms. Two weeks later, he felt weak again and went and saw Dr. Langford on an outpatient basis and was diagnosed with a sinus infection, was given some antibiotics at that time with no help. Repeat labs showed improving ALT and AST. He was working outside yesterday and once again felt extremely fatigued and exhausted and with sweats and not feeling and hence came into the emergency room and subsequently admitted to hospital for further evaluation. He was noted to have mild elevation of serum transaminases and hence we are consulted in regards to rule out hepatitis B infection. The patient denies any jaundice. No hepatitis in the past. No high-risk behavior. No risk factors for exposure to hepatitis B. He denies any abdominal pain. No nausea, vomiting. No rectal bleeding or melena. PAST MEDICAL HISTORY: Significant for hypertension, hyperlipidemia, degenerative joint disease, prostate disorder. PAST SURGICAL HISTORY: Right knee surgery. MEDICATIONS: At home include Cetirizine, Fenofibrate, Neurontin, Zestoretic, Neocin, Protonix, Flomax, aspirin, vitamin D3, Medrol Dosepak. ALLERGIES: To MST. SOCIAL HISTORY: No smoking or alcohol use. FAMILY HISTORY: Father had lung cancer. Mother, coronary artery disease. REVIEW OF SYSTEMS: Cardiopulmonary: No chest pain or shortness of breath. Genitourinary: No dysuria or hematuria. Musculoskeletal unremarkable. Skin unremarkable. Endocrine unremarkable. Psychiatric unremarkable. Neurology unremarkable. Constitutional: Fatigue weakness, however, no fever, chills, or night sweats. Endocrine unremarkable. Hematology unremarkable. PHYSICAL EXAMINATION: He appears comfortable. No apparent distress. VITAL SIGNS: Stable. Blood pressure 143/82, pulse 82, temperature 97.9. HEENT examination unremarkable. Conjunctivae pink. Sclerae anicteric. Oral cavity no lesions. NECK: No jugular venous distention or lymph node enlargement. CHEST: Clear to auscultation. Heart was regular rate and rhythm. ABDOMEN: Soft, it was nontender, nondistended. Liver edge was palpable, which was soft in consistency. Spleen not palpable. EXTREMITIES: No pedal edema. SKIN no rashes. NEUROLOGIC: Alert and oriented x3. No focal deficits. LABS: From yesterday WBC 10.1, hemoglobin 11.6, platelets are normal. AST and ALT 54 and 181 respectively. T-bilirubin and alkaline phosphatase are normal. Today AST 47, ALT 145, T-bilirubin and alkaline phosphatase are normal. Ultrasound of the abdomen showed evidence of hepatic steatosis. IMPRESSION: 1. Elevated LFTs in the range of 200's and 300's about 2 weeks ago and workup on an outpatient basis apparently revealed positive hepatitis B core IgM antibody, which is consistent with acute hepatitis B infection. 2. Apparently the patient does not have any high-risk behavior or risk factors for exposure to hepatitis B. In any event, his serum transaminases have improved. AST is normal. ALT is slightly elevated at 181. Bilirubin and alkaline phosphatase have been have been normal. Ultrasound of the abdomen showed evidence of hepatic steatosis. 3. Episodes of severe fatigue, exhaustion, decreased appetite for the last 3-4 weeks duration. Etiology remains unclear. The CT of the abdomen and pelvis done on October 15, showed sigmoid diverticulosis and hepatic steatosis as well as splenomegaly. 4. History of chronic kidney disease. 5. Hypertension and hypertensive cardiovascular disease. 6. Mild anemia. RECOMMENDATIONS: I had a lengthy discussion with the patient as well as his regarding acute hepatitis B infection, symptoms, natural course of the disease and long-term improvement. His serum transaminases are definitely improving and this makes it very likely the patient will have complete recovery from the hepatitis B infection. At this time it is unclear whether this has caused fatigue and weakness, but quite possible. He understands that there is no treatment for acute hepatitis B infection as it has a very good prognosis and 95% chance of complete recovery. Hence, for now, we will continue with symptomatic and supportive care. Repeat labs in the morning and follow him closely on an outpatient basis. Thank you for this consultation. MMODL / IJN: [id number] /
[2018-10-19 16:27] VITALS: BMI 27.1
--- NOTE | 2018-10-19 21:19 | P.DS ---
Providers Date of admission: 10/18/18 13:57 Attending physician: Shiraz Richardson Consults: 10/18/18 13:58 Consult Physician Routine Consulting Provider: Sarahi Lakhani Consult Reason/Comments: Acute hepatitis B Do you want consulting provider notified?: Yes 10/18/18 14:27 Consult Physician Routine Consulting Provider: Sarahi Lakhani Consult Reason/Comments: HepB Do you want consulting provider notified?: Yes Primary care physician: [facility] Course: This is a 73-year-old male one of Dr. Langford with a previous medical history significant for hypertension and hypertensive cardiovascular disease with left ventricular hypertrophy, hyperlipidemia, chronic kidney disease stage III, GERD, glaucoma, out, patient was recently diagnosed of having acute hepatitis be based on recent serology in the office with a positive hepatitis B core IgM, patient was seen earlier about a week ago in the office for what appears to be in acute sinusitis he was placed on oral antibiotic as well as M edrol Dosepak and he was seen in the emergency department at [facility] last week because of generalized fatigue and weakness patient was feeling extremely exhausted not able to do anything patient did have an elevation of AST and ALT that got better over the last few days however he was brought into the emergency department at [facility] today because she exhausted and not able to do anything at this point in time, his liver enzymes are better and he has no elevation of bilirubin and he has no elevation of ammonia level his albumin level as well as protein level and INR were normal, he appears to have mild icterus in the sclerae without significant jaundice in the body, patient will be admitted to the hospital for evaluation by gastroneurology. 10/19:, Patient did not decompensate with liver function tests, appetite seems to have improved, patient denies any lightheadedness no dizziness, blood pressures are stable during this admission, without any hypotensive events patient was seen by GI, regarding hepatitis B, patient does not have any high risk procedures or behaviors, however she did go to his normal cleaning by his dentist less than 3 months ago,, there is no jaundice currently, has improvement off liver function tests ALT and AST that shows a downward trend, fatigue is still present however there is no cardiac complaints, TSH was recently checked by Dr. Langford during his last visit less than one month ago, blood sugars are without any hypoglycemia, creatinine stable at 1.44, no azotemia that significant, ammonia levels are normal urinalysis is normal no quite adenopathy identified hyponatremia has improved lactic acidosis has improved. Hemoglobin stable at 11.2 from 11.6, has myelocytes and metamyelocytes at 0.10 each, manual smear review has been performed this has improved on subsequent CBC on discharge FINAL DIAGNOSIS 1. Acute hepatitis B based on results of serology with positive hepatitis B core antibody IgM. Patient does not have an evidence of acute fulminant hepatitis at this time, he will be started on IV fluid in the form of normal saline at 75 mL an hour, patient will be seen in consultation by gastroenterology, ultrasound of the liver showed equal genic appearance in the liver is slightly enlarged, his slightly nodular with no evidence off Victor's sign, gallbladder bladder within normal limits, history 95% of the patient will achieve complete remission without any treatment and he is unlikely to have a chronic carrier state due to his age as this is adversely related to the patient age, patient will be seen in consultation by hepatology with no new recommendations at this time, 2. Transient metamyelocytosis significance is unknown, this has resolved upon discharge, this needs to be monitored closely, possibly related to viral infections, close monitory with peripheral smears is recommended 2. Acute kidney injury and top of chronic kidney disease stage III. To be mon itored as an outpatient, patient's to continue on lisinopril HCTZ, monitor for blood pressure at home including hypotension, orthostatic vitals to be done as an outpatient 3. Hypertension and hypertensive cardiovascular disease. Continue patient on lisinopril 20 mg orally twice every day. 4. History of gout. Continue patient on Uloric 80 mg orally once every day. 5. Enlarged prostate. Continue Flomax 0.4 mg orally once every day. 6. Mild anemia. Monitor the patient's CBC. 7. GERD. Continue Prilosec 20 mg orally once every day. 8. Generalized weakness likely related to acute hepatitis B. We'll continue to monitor. 9. DVT prophylaxis. Heparin 5000 units subcutaneously every 12 hours. 10. GI prophylaxis. Continue patient on PPi Outpatient follow-up to include orthostatic vital signs in the office, CBC to evaluate for transient matter metamyelocytosis, CMP when seen at the PCP office Dr. Langford Patient Condition at Discharge: Stable Plan - Discharge Summary Discharge Rx Participant: Yes New Discharge Prescriptions: Continue Latanoprost Ophth [Xalatan 0.005%] 1 drops BOTH EYES HS Cetirizine HCl 10 mg PO DAILY Lisinopril-Hctz 20-12.5 mg [Zestoretic 20-12.5] 1 tab PO BID Gabapentin [Neurontin] 600 mg PO HS Tamsulosin [Flomax] 0.4 mg PO DAILY Pantoprazole [Protonix] 40 mg PO DAILY Niacin 500 mg PO DAILY Fenofibrate Nanocrystallized [Fenofibrate] 145 mg PO HS Febuxostat [Uloric] 80 mg PO QAM Cholecalciferol (Vitamin D3) [Vitamin D3] 2,000 unit PO DAILY Colchicine [Colcrys] 0.6 mg PO DAILY PRN PRN Reason: GOUT FLARE X 15 DAYS Aspirin [[place] Aspirin EC] 81 mg PO DAILY Loteprednol Etabonate [Alrex] 1 drop RIGHT EYE TID Discontinued methylPREDNISolone Dose Pack [Medrol Dose Pack] See Taper PO DAILY Discharge Medication List Cetirizine HCl 10 mg PO DAILY 03/26/17 [History] Febuxostat [Uloric] 80 mg PO QAM 03/26/17 [History] Fenofibrate Nanocrystallized [Fenofibrate] 145 mg PO HS 03/26/17 [History] Gabapentin [Neurontin] 600 mg PO HS 03/26/17 [History] Latanoprost Ophth [Xalatan 0.005%] 1 drops BOTH EYES HS 03/26/17 [History] Lisinopril-Hctz 20-12.5 mg [Zestoretic 20-12.5] 1 tab PO BID 03/26/17 [History] Niacin 500 mg PO DAILY 03/26/17 [History] Pantoprazole [Protonix] 40 mg PO DAILY 03/26/17 [History] Tamsulosin [Flomax] 0.4 mg PO DAILY 03/26/17 [History] Aspirin [[place] Aspirin EC] 81 mg PO DAILY 10/15/18 [History] Cholecalciferol (Vitamin D3) [Vitamin D3] 2,000 unit PO DAILY 10/15/18 [History] Colchicine [Colcrys] 0.6 mg PO DAILY PRN 10/15/18 [History] Loteprednol Etabonate [Alrex] 1 drop RIGHT EYE TID 10/18/18 [History] Follow up Appointment(s)/Referral(s): Herbie Langford MD [Primary Care Provider] - 1-2 days (office closed , please call sunday to make appt) Patient Instructions/Handouts: Hepatitis B (DC) Discharge Disposition: HOME SELF-CARE
== END 2018-10-19 16:49 | disposition home or self-care (01) ==
LOC: EC 10:30 → 4MS4W 13:57
PROVIDERS: ADMIT Internal Medicine; ATTEND Internal Medicine
DX: R53.1 Weakness (principal); E78.5 Hyperlipidemia, unspecified; I13.10 Hypertensive heart and chronic kidney disease without heart failure, with stage 1 through stage 4 chronic kidney disease, or unspecified chronic kidney disease; N18.3 Chronic kidney disease, stage 3 (moderate); D64.9 Anemia, unspecified; N17.9 Acute kidney failure, unspecified; B16.9 Acute hepatitis B without delta-agent and without hepatic coma; E86.0 Dehydration; Z87.891 Personal history of nicotine dependence; K57.30 Diverticulosis of large intestine without perforation or abscess without bleeding; M10.9 Gout, unspecified; N40.0 Benign prostatic hyperplasia without lower urinary tract symptoms; K21.9 Gastro-esophageal reflux disease without esophagitis; H40.9 Unspecified glaucoma; M19.90 Unspecified osteoarthritis, unspecified site; Z98.890 Other specified postprocedural states; Z79.82 Long term (current) use of aspirin; Z79.899 Other long term (current) drug therapy; Z79.52 Long term (current) use of systemic steroids; Z88.8 Allergy status to other drugs, medicaments and biological substances; Z80.1 Family history of malignant neoplasm of trachea, bronchus and lung; Z82.49 Family history of ischemic heart disease and other diseases of the circulatory system
CPT/HCPCS: 96361 ×2; 96372 ×2; 96360; 99285; 36415; 93005; 83880; 80053 ×2; 82140; 83605; 83735; 84484; 85025 ×2; 85610; 85730; 81003; 71046; 76700; G0378 ×2; J1644 ×2

== ENCOUNTER 2020-09-17 23:33 | Observation (INO) | payer MEDICARE ==
--- NOTE | 2020-09-17 23:55 | ED ---
Chest Pain HPI - General Chief Complaint: Chest Pain Stated Complaint: Abdominal/Back Pain Time Seen by Provider: 09/17/20 23:45 Source: patient Mode of arrival: ambulatory - History of Present Illness MD Complaint: chest pain -: hour(s) (2) Onset: awoke with symptoms Pain Location: epigastric Pain Radiation: back Severity: severe Quality: aching, other (Cramping) Consistency: constant Improves With: nothing Worsens With: nothing Treatments Prior to Arrival: none - Related Data Home Medications Medication Instructions Recorded Confirmed Cetirizine HCl 10 mg PO DAILY 03/26/17 10/18/18 Febuxostat [Uloric] 80 mg PO QAM 03/26/17 10/18/18 Fenofibrate Nanocrystallized 145 mg PO HS 03/26/17 10/18/18 [Fenofibrate] Gabapentin [Neurontin] 600 mg PO HS 03/26/17 10/18/18 Latanoprost Ophth [Xalatan 0.005%] 1 drops BOTH EYES HS 03/26/17 10/18/18 Lisinopril-Hctz 20-12.5 mg 1 tab PO BID 03/26/17 10/18/18 [Zestoretic 20-12.5] Niacin 500 mg PO DAILY 03/26/17 10/18/18 Pantoprazole [Protonix] 40 mg PO DAILY 03/26/17 10/18/18 Tamsulosin [Flomax] 0.4 mg PO DAILY 03/26/17 10/18/18 Aspirin [Merced Aspirin EC] 81 mg PO DAILY 10/15/18 10/18/18 Cholecalciferol (Vitamin D3) 2,000 unit PO DAILY 10/15/18 10/18/18 [Vitamin D3] Colchicine [Colcrys] 0.6 mg PO DAILY PRN 10/15/18 10/18/18 Loteprednol Etabonate [Alrex] 1 drop RIGHT EYE TID 10/18/18 10/18/18 Allergies Allergy/AdvReac Type Severity Reaction Status Date / Time monosodium glutamate [MSG] AdvReac Diarrhea Verified 09/17/20 23:39 Review of Systems ROS Statement: Those systems with pertinent positive or pertinent negative responses have been documented in the HPI. ROS Other: All systems not noted in ROS Statement are negative. Constitutional: Denies: fever, chills Respiratory: Denies: cough, dyspnea Cardiovascular: Reports: chest pain. Denies: palpitations, dyspnea on exertion, orthopnea, edema, syncope Gastrointestinal: Denies: nausea, vomiting, diarrhea, constipation, melena, hematochezia Genitourinary: Denies: dysuria, hematuria Musculoskeletal: Denies: back pain Skin: Denies: rash Neurological: Denies: headache, weakness, numbness EKG Findings - EKG Results: EKG: interpreted by ERMD, sinus rhythm (Rate 91 bpm), normal ST/T - Blocks, [place], Hypertrophy, ST Abn: AV and intraventricular conduction: 1 AV block, right bundle branch block (fixed/intermittent, complete/incomplete) Past Medical History Past Medical History: Eye Disorder, GERD/Reflux, Hyperlipidemia, Hypertension, Osteoarthritis (OA), Prostate Disorder, Renal Disease, Syncope Additional Past Medical History / Comment(s): Bilateral glaucoma. Hx fainting episode 4 yrs ago, thinks due to dehydration. Hx Prostate infection yrs ago. History of Any Multi-Drug Resistant Organisms: None Reported Past Surgical History: Orthopedic Surgery Additional Past Surgical History / Comment(s): Right knee surgery X3. / bilateral cataract surgery Past Anesthesia/Blood Transfusion Reactions: No Reported Reaction Additional Past Anesthesia/Blood Transfusion Reaction / Comment(s): Had a spinal with 1st knee surgery and had difficulty urinating after. Past Psychological History: No Psychological Hx Reported Smoking Status: Never smoker Past Alcohol Use History: Occasional Past Drug Use History: None Reported - Past Family History Father Family Medical History: Cancer Mother Family Medical History: Coronary Artery Disease (CAD) Additional Family Medical History / Comment(s): lived to 95 years old. from a cva Brother(s) Family Medical History: No Reported History Sister(s) Family Medical History: No Reported History Son(s) Family Medical History: No Reported History General Exam General appearance: alert, in no apparent distress Head exam: Present: atraumatic, normocephalic Eye exam: Present: normal appearance. Absent: scleral icterus, conjunctival injection Neck exam: Present: normal inspection Respiratory exam: Present: normal lung sounds bilaterally. Absent: respiratory distress, wheezes, rales, rhonchi, stridor Cardiovascular Exam: Present: regular rate, normal rhythm, normal heart sounds. Absent: systolic murmur, diastolic murmur, rubs, gallop GI/Abdominal exam: Present: soft, normal bowel sounds. Absent: distended, tenderness, guarding, rebound, rigid, mass, pulsatile mass, hernia Extremities exam: Present: normal inspection, normal capillary refill. Absent: pedal edema, calf tenderness Back exam: Present: normal inspection. Absent: CVA tenderness (R), CVA tenderness (L) Neurological exam: Present: alert Skin exam: Present: warm, dry, intact, normal color. Absent: rash Course Vital Signs 09/17/20 09/18/20 23:36 00:40 Temperature 97.4 F L Pulse Rate 96 70 Respiratory 19 18 Rate Blood Pressure 179/96 147/90 O2 Sat by Pulse 99 96 Oximetry Disposition Clinical Impression: Chest pain Disposition: ADMITTED IP TO THIS HOSP Condition: Good Instructions (If sedation given, give patient instructions): Chest Pain (ED) Is patient prescribed a controlled substance at d/c from ED?: No Referrals: Herbie Langford MD [Primary Care Provider] - 1-2 days
[2020-09-18] MEDS ORDERED: HYDROmorphone 1 MG/ML 1 ML SYRINGE IVP STA (00:15)
[2020-09-18] MEDS ORDERED: LABETALOL 5 MG/ML VIAL MDV IVP STA (00:16)
[2020-09-18 00:53] LABS: Basophils # (A) 0.1 k/uL (0-0.2); Basophils % (A) 1 %; Eosinophils # (A) 0.2 k/uL (0-0.7); Eosinophils % (A) 3 %; HCT 37.1 % (39.0-53.0); HGB 12.8 gm/dL (13.0-17.5); Lymphocytes # (A) 1.1 k/uL (1.0-4.8); Lymphocytes % (A) 18 %; MCH 32.3 pg (25.0-35.0); MCHC 34.5 g/dL (31.0-37.0); MCV 93.6 fL (80.0-100.0); Mean Platelet Volume 8.1; Monocytes # (A) 0.3 k/uL (0-1.0); Monocytes % (A) 6 %; Neutrophils # (A) 4.3 k/uL (1.3-7.7); Neutrophils % (A) 70 %; Platelet Count 199 k/uL (150-450); RBC 3.96 m/uL (4.30-5.90); RDW 14.1 % (11.5-15.5); WBC 6.1 k/uL (3.8-10.6)
[2020-09-18 01:08] LABS: Calcium 9.6 mg/dL (8.4-10.2); Potassium 3.8 mmol/L (3.5-5.1); Total Bilirubin 0.4 mg/dL (0.2-1.3); Total Protein 6.6 g/dL (6.3-8.2)
--- NOTE | 2020-09-18 01:37 | CT ---
EXAM: CT Abdomen and Pelvis Without Intravenous Contrast CLINICAL HISTORY: ITS.REASON CT Reason: epigastric pain TECHNIQUE: Axial computed tomography images of the abdomen and pelvis without intravenous contrast. CTDI is 13.07 mGy and DLP is 769.8 mGy-cm. This CT exam was performed using one or more of the following dose reduction techniques: automated exposure control, adjustment of the mA and/or kV according to patient size, and/or use of iterative reconstruction technique. COMPARISON: 10/15/2018 FINDINGS: Lung bases: No mass. No consolidation. ABDOMEN: Liver: Enlarged with steatosis. Gallbladder and bile ducts: Unremarkable. Pancreas: No ductal dilation. Spleen: Unremarkable. Adrenals: Unremarkable. Kidneys and ureters: No obstructing stones. No hydronephrosis. Stomach and bowel: No bowel obstruction. No bowel wall thickening. PELVIS: Appendix: No evidence of appendicitis. Bladder: No stones. Reproductive: Enlarged prostate gland. ABDOMEN and PELVIS: Intraperitoneal space: Unremarkable. Bones/joints: No acute fractures. Soft tissues: Unremarkable. Vasculature: No abdominal aortic aneurysm. Lymph nodes: Nonspecific prominent subcentimeter retroperitoneal lymph nodes are again seen. IMPRESSION: 1. Hepatomegaly with steatosis. 2. Enlarged prostate gland. 3. Colonic diverticulosis. 4. Nonspecific prominent subcentimeter retroperitoneal lymph nodes are again seen.
[2020-09-18 01:41] LABS: Appearance,Urine Clear (Clear); Bilirubin,Urine Negative (Negative); Blood,Urine Negative (Negative); Color,Urine Yellow; Glucose,Urine (UA) Negative (Negative); Ketones,Urine Negative (Negative); Leukocyte Esterase,Urine Negative (Negative); Nitrite,Urine Negative (Negative); PH, Urine 5.5 (5.0-8.0); Protein,Urine Negative (Negative); Specific Gravity,Urine 1.022 (1.001-1.035); Urobilinogen,Urine <2.0 mg/dL (<2.0)
--- NOTE | 2020-09-18 02:28 | US ---
EXAM: US Abdomen Limited, Right Upper Quadrant CLINICAL HISTORY: ITS.REASON US Reason: attention RUQ TECHNIQUE: Real-time ultrasound of the right upper quadrant with image documentation. COMPARISON: CT abdomen 09/18/2020 FINDINGS: Liver: Enlarged. Increased echogenicity of breath No mass. No intrahepatic bile duct dilation. Gallbladder: No gallstones. No pericholecystic fluid. No gallbladder wall thickening. Negative Victor's sign. Common bile duct: No stones. No dilation. Pancreas: Obscured. Right kidney: No stones. No solid mass. No hydronephrosis. IMPRESSION: Hepatomegaly with steatosis.
[2020-09-18] MEDS ORDERED: NITROGLYCERIN SL TABS 0.4 MG TAB SUBLINGUAL PRN (03:35)
[2020-09-18] MEDS: SODIUM CHLORIDE 0.9% 1,000 ML IV SCH ×3 (04:05→22:08)
[2020-09-18] MEDS ORDERED: NIACIN TR 500 MG CAPLET PO SCH (09:00)
[2020-09-18] MEDS ORDERED: HYDROCORTISONE 1% CREAM 30 GM TUBE TOPICAL PRN (10:52)
[2020-09-18] MEDS ORDERED: NON FORMULARY DRUG (Aspirin [St. Joseph Aspirin Ec] 81 MG Tablet.Dr) PO SCH (11:00)
[2020-09-18] MEDS ORDERED: lisinopriL 20 MG TAB PO SCH (11:00)
[2020-09-18] MEDS ORDERED: TRIAMCINOLONE 0.1% CREAM 80 GM TUBE TOPICAL PRN (11:09)
--- NOTE | 2020-09-18 11:32 | CT ---
EXAMINATION TYPE: CT angio thor/abd pel aorta DATE OF EXAM: 09/18/2020 COMPARISON: CT abdomen pelvis 09/18/2020 at earlier time HISTORY: Upper Abdominal pain CT DLP: 1047.3 mGycm. Automated Exposure Control for Dose Reduction was Utilized. CONTRAST: CT scan of the thorax, abdomen and pelvis is performed with IV Contrast, patient injected with 100 mL of Isovue 370. FINDINGS: LUNGS: The lungs are grossly clear, there is no concerning parenchymal mass or nodule identified. T here is no pleural effusion or pneumothorax seen. The tracheobronchial tree is patent. MEDIASTINUM: There are no greater than 1 cm hilar or mediastinal lymph nodes. No pericardial effusi on is seen. There are coronary artery calcifications present. OTHER: Aorta shows no dissection or aneurysm. 2 super aortic branch vessels are present. The renal ar teries, superior mesenteric artery, celiac axis, inferior mesenteric artery, common iliac arteries, i nternal and external iliac arteries, common femoral arteries are patent as well as proximal superfici al femoral and deep femoral arteries. Atheromatous changes are present, there is some plaque at the o rigin of the common iliac artery on the left. LIVER/GB: Liver shows low attenuation likely due to hepatic steatosis, liver is enlarged, gallbladder is normal PANCREAS: No significant abnormality is seen. SPLEEN: No significant abnormality is seen. ADRENALS: No significant abnormality is seen. KIDNEYS: No significant abnormality is seen. BOWEL: Diverticular changes associated with the sigmoid colon. GENITAL ORGANS: Prostate is enlarged a nd calcifications are seen. LYMPH NODES: No greater than 1cm abdominal or pelvic lymph nodes are appreciated. OSSEOUS STRUCTURES: Degenerative disc changes, facet arthropathy noted in the lumbar spine OTHER: No significant additional abnormality is seen. IMPRESSION: Hepatomegaly, hepatic steatosis. No evident aortic aneurysm. No evident dissection. Coron susana artery disease. Prostate is enlarged.
[2020-09-18] MEDS: PANTOPRAZOLE 40 MG TABLET PO SCH (12:24)
[2020-09-18] MEDS: allopurinoL 100 MG TAB PO SCH ×2 (12:24→22:07)
[2020-09-18] MEDS: TAMSULOSIN 0.4 MG CAP.ER.24H PO SCH (12:24)
[2020-09-18] MEDS: LISINOPRIL-HCTZ 20-12.5 MG 1 EACH TAB PO SCH ×2 (12:25→22:53)
[2020-09-18] MEDS: LOTEPREDNOL ETABONATE 0.2% RIGHT EYE SCH ×3 (12:26→22:06)
--- NOTE | 2020-09-18 12:34 | P.HPIM ---
History of Present Illness H&P Date: 09/18/20 75 years old male with past medical history of hypertension, hyperlipidemia, osteoarthritis, GERD, BPH, history of exposure to hepatitis C with fatty liver disease patient of Dr. Langford comes in with acute severe epigastric pain that started while patient was sleeping on the couch and woke the patient up at night. Patient did not have any food prior to the epigastric pain. She did he denies any history of alcohol use. He did have a stress test 1 year ago which was normal. He denies any dizziness, shortness of breath, palpitation, sweating along with the pain. The to the epigastric pain is better. He denies any radiation of pain to the left arm. He denies any orthopnea or PND. He is a nonsmoker and does not drink alcohol. In the ER patient's vitals suggested temp 97.4 pulse 96 respiratory rate 19 blood pressure 179/96 oxygen saturation are 99% on room air. Labs reviewed patient had a hemoglobin of 12.8 BUN 21 creatinine 1.13 glucose 133 troponin 3 negative. UA was negative for infection lipase was normal. Patient underwent CT of the abdomen and pelvis with clinic diverticulosis no gallbladder inflammation no pancreatic inflammation. Did have some nonspecific retroperitoneal lymph nodes. CT of the thoracic aorta was obtained to rule out aneurysm which was negative for dissection or aneurysm. Patient does take pantoprazole for acid reflux but felt the pain was different as compared to his previous discomfort. Review of Systems Constitutional: Denies chills, Denies fever, Denies lethargy, Denies malaise, Denies poor appetite, Denies weakness, Denies weight loss Eyes: denies decreased vision, denies diplopia, denies discharge, denies pain Ears: deny: decreased hearing Ears, nose, mouth and throat: Denies dental pain, Denies headache, Denies nasal discharge, Denies nose pain Cardiovascular: Denies chest pain, Denies decreased exercise tolerance, Denies edema, Denies high blood pressure, Denies irregular heart beat, Denies palpitations, Denies paroxysmal nocturnal dyspnea, Denies rapid heart beat, Denies shortness of breath Respiratory: Denies congestion, Denies cough, Denies cough with sputum, Denies dyspnea, Denies home oxygen, Denies wheezing Gastrointestinal: Epigastric pain, Denies change in bowel habits, Denies coffee ground emesis, Denies early satiety, Denies excessive gas, Denies heartburn, Denies hematemesis, Denies hematochezia, Denies loss of appetite, Denies nausea, Denies vomiting Genitourinary: Denies dysuria, Denies flank pain, Denies kidney stones, Denies menorrhagia, Denies urgency, Denies urinary frequency Musculoskeletal: Denies gait dysfunction, Denies limitation of motion, Denies morning stiffness, Denies muscle cramps Integumentary: Denies rash, Denies wounds, Denies brittle nails, Denies change in hair/nails, Denies darkening of skin Neurological: Denies balance difficulties, Denies change in speech, Denies double vision, Denies gait dysfunction, Denies loss of vision, Denies motor disturbance, Denies numbness, Denies paralysis, Denies paresthesias, Denies seizures Psychiatric: Denies anxiety, Denies depression Endocrine: Denies excessive sweating, Denies excessive thirst, Denies high blood sugars, Denies palpitations Hematologic/Lymphatic: Denies easy bruising, Denies lymphadenopathy Past Medical History Past Medical History: Eye Disorder, GERD/Reflux, Hyperlipidemia, Hypertension, Osteoarthritis (OA), Prostate Disorder, Renal Disease, Syncope Additional Past Medical History / Comment(s): Bilateral glaucoma. Hx fainting episode 4 yrs ago, thinks due to dehydration. Hx Prostate infection yrs ago. History of Any Multi-Drug Resistant Organisms: None Reported Past Surgical History: Orthopedic Surgery Additional Past Surgical History / Comment(s): Right knee surgery X3. / bilateral cataract surgery Past Anesthesia/Blood Transfusion Reactions: No Reported Reaction Additional Past Anesthesia/Blood Transfusion Reaction / Comment(s): Had a spinal with 1st knee surgery and had difficulty urinating after. Past Psychological History: No Psychological Hx Reported Smoking Status: Never smoker Past Alcohol Use History: Occasional Past Drug Use History: None Reported - Past Family History Father Family Medical History: Cancer Mother Family Medical History: Coronary Artery Disease (CAD) Additional Family Medical History / Comment(s): lived to 95 years old. from a cva Brother(s) Family Medical History: No Reported History Sister(s) Family Medical History: No Reported History Son(s) Family Medical History: No Reported History Medications and Allergies Home Medications Medication Instructions Recorded Confirmed Type Febuxostat [Uloric] 80 mg PO DAILY 03/26/17 09/18/20 History Fenofibrate Nanocrystallized 145 mg PO HS 03/26/17 09/18/20 History [Fenofibrate] Niacin 500 mg PO DAILY 03/26/17 09/18/20 History Tamsulosin [Flomax] 0.4 mg PO DAILY 03/26/17 09/18/20 History Aspirin [Colma Aspirin EC] 81 mg PO DAILY 10/15/18 09/18/20 History Aspirin 81 mg PO DAILY chew 09/18/20 Rx Atorvastatin [Lipitor] 20 mg PO HS #30 tab 09/18/20 Rx Azelastine HCl 1 spray EA NOSTRIL DAILY 09/18/20 09/18/20 History Azelastine HCl [Optivar 0.05% 1 drop BOTH EYES BID 09/18/20 09/18/20 History Ophth Soln] Cholecalciferol [Vitamin D3 (25 25 mcg PO DAILY 09/18/20 09/18/20 History Mcg = 1000 Iu)] Dorzolamide/Timolol/Pf 1 drop BOTH EYES BID 09/18/20 09/18/20 History [Dorzolamide 2%-Timolol 0.5%] Hydrocortisone Cream 1 applic TOPICAL BID PRN 09/18/20 09/18/20 History [Hydrocortisone 2.5% Cream] Metoprolol Tartrate [Lopressor] 50 mg PO BID #60 tab 09/18/20 Rx Montelukast [Singulair] 10 mg PO DAILY 09/18/20 09/18/20 History Pantoprazole [Protonix] 40 mg PO BID #60 tab 09/18/20 Rx amLODIPine [Norvasc] 5 mg PO DAILY 09/18/20 09/18/20 History lisinopriL 10 mg PO DAILY 09/18/20 09/18/20 History Allergies Allergy/AdvReac Type Severity Reaction Status Date / Time monosodium glutamate [MSG] AdvReac Diarrhea Verified 09/18/20 09:36 Physical Exam Vitals: Vital Signs Temp Pulse Pulse Resp BP BP Pulse Ox 09/18/20 09:18 97.9 F 72 19 162/87 98 09/18/20 07:34 98.3 F 74 18 164/90 97 09/18/20 04:00 70 18 160/88 96 09/18/20 00:40 70 18 147/90 96 09/17/20 23:36 97.4 F L 96 19 179/96 99 Intake and Output 09/17/20 09/18/20 09/18/20 22:59 06:59 14:59 Other: Weight 92.986 kg - Constitutional General appearance: cooperative, no acute distress, obese - EENT Eyes: anicteric sclerae, PERRLA, normal appearance ENT: hearing grossly normal - Neck Neck: no lymphadenopathy, normal ROM, no other, no rigidity, no stridor, no thyromegaly - Respiratory Respiratory: bilateral: CTA, negative: diminished, dullness, rales, rhonchi - Cardiovascular Rhythm: regular Heart sounds: normal: S1, S2 Abnormal Heart Sounds: no systolic murmur, no diastolic murmur, no rub, no S3 Gallop, no S4 Gallop, no click, no other - Gastrointestinal General gastrointestinal: normal bowel sounds, soft mild abdominal generalized discomfort no abdominal tenderness - Integumentary Integumentary: no rash - Neurologic Neurologic: CNII-XII intact - Musculoskeletal Musculoskeletal: gait normal, strength equal bilaterally - Psychiatric Psychiatric: A&O x's 3, appropriate affect Results CBC & Chem 7: 09/18/20 00:41 09/18/20 00:41 Labs: Abnormal Lab Results - Last 24 Hours (Table) 09/18/20 09/18/20 Range/Units 00:41 00:41 RBC 3.96 L (4.30-5.90) m/uL Hgb 12.8 L (13.0-17.5) gm/dL Hct 37.1 L (39.0-53.0) % BUN 21 H (9-20) mg/dL Glucose 133 H (74-99) mg/dL Thrombosis Risk Factor Assmnt - DVT/VTE Prophylaxis DVT/VTE Prophylaxis: Pharmacologic Prophylaxis ordered Assessment and Plan Plan: #1 atypical chest pain likely secondary to hypertension. ACS ruled out. CT thoracic aorta negative for aneurysm or dissection. Metoprolol start restarted at 50 twice a day. Aspirin and Lipitor initiated by cardiology. Patient to follow with cardiology as outpatient. Stress test negative 1 year ago. #2 Hypertension - uncontrolled. will add metoprolol at 50 mg po Bid along with lisinoprila nd norvasc that patient takes at home #3 Gout on uloric #4 HLD continue niacin and fenofibrate. Allopurinol 20 mg added by cardiology. #5 ALLERGIC rhinitis continue Singulair 10 mg daily #6 BPH continue Flomax 0.4 mg daily #7 GERD pantoprazole increased to 40 twice a day for the epigastric pain. Pancreatitis ruled out #8 epigastric pain rule out pancreatitis. Thoracic aorta negative for aneurysm or dissection. Likely secondary to GERD. Pantoprazole increasedto twice daily. Cannot exclude hypertensive cardiovascular disease Cardiology consult placed #9 DVT prophylaxis continue heparin every 12 10 Code status full code #11 disposition patient may need 1-2 inpatient nights for stabilization of his blood pressure
[2020-09-18] MEDS: DORZOLAMIDE-TIMOLOL 2.23%/0.68 10ML BTL BOTH EYES SCH ×2 (12:36→22:09)
[2020-09-18] MEDS: KETOTIFEN 0.025% OPHTH DROPS 5 ML BTL BOTH EYES SCH ×2 (12:37→22:10)
[2020-09-18] MEDS: AZELASTINE 137MCG/SPRAY EA NOSTRIL SCH (12:37)
[2020-09-18] MEDS: METOPROLOL TARTRATE 50 MG TAB PO SCH ×2 (12:46→22:07)
[2020-09-18] MEDS: amLODIPine 5 MG TAB PO SCH (12:46)
[2020-09-18] MEDS: ASPIRIN 81 MG PO SCH (12:46)
[2020-09-18] MEDS: MONTELUKAST 10 MG TAB PO SCH (12:46)
--- NOTE | 2020-09-18 14:19 | CONS ---
CONSULTATION HISTORY OF PRESENT ILLNESS: This is a 75-year-old gentleman with a known history of hypertension, benign prostatic hypertrophy, hyperlipidemia who came into the hospital complaining of severe epigastric discomfort and the pain was radiating from the epigastric area to the back. He felt it was very severe, was quite concerned. His blood pressure was also elevated. He received some labetalol. His pressure is better now. He is more comfortable. The pain intensity is less. Clinically, patient appears to be comfortable. His troponins are normal. EKG revealed sinus mechanism with a right bundle branch block and first- degree heart block. Laboratory data revealed unremarkable troponins and D-dimer was also unremarkable. His discomfort seems to have abated a lot. The last blood pressure is better at 160/80. PAST MEDICAL HISTORY: 1. Patient had a stress test about a year ago, which was normal. 2. He has hypertension. 3. He has history of benign prostatic hypertrophy. 4. He has also history of some gastroesophageal reflux disease and bronchial asthma. MEDICATIONS: At home include aspirin 81 mg daily, Singulair 10 mg daily, amlodipine 5 mg daily. Fenofibrate, niacin, lisinopril 10 mg daily. PHYSICAL EXAMINATION: On examination, blood pressure 167/80, pulse rate is 70 per minute, regular. HEENT unremarkable. Fundus was not examined by me. Neck is supple. There is no JVD. I do not hear a carotid bruit. HEART exam reveals S1, S2 heard normally. There is a short systolic murmur at the left sternal border. LUNGS reveal diminished air entry. ABDOMEN is soft, nontender. Lower EXTREMITIES reveal normal pulses. CENTRAL NERVOUS SYSTEM grossly within normal limits. EKG revealed sinus mechanism, first-degree AV block, right bundle branch block pattern. No acute changes. LABORATORY DATA: Revealed unremarkable troponins. IMPRESSION: 1. Epigastric and chest pain with radiation to the back. 2. Accelerated hypertension. 3. History of negative stress test about a year ago or less. 4. RECOMMENDATIONS: Given his presentation and accelerated hypertension, I am recommending a CT angiogram to be performed to rule out any thoracic or abdominal aortic pathology. I discussed my thoughts in detail with the patient. I will hydrate him, perform CT angio and if this is normal, after controlling the blood pressure, he can be discharged hopefully in the next 24 hours. I discussed my thoughts in detail with the patient. Thank you very much for the consultation. MMODL / IJN: [id number] /
[2020-09-18] MEDS ORDERED: LATANOPROST 0.005% OPHTH DROPS 2.5 ML BTL BOTH EYES SCH (21:00)
[2020-09-18] MEDS ORDERED: GABAPENTIN 300 MG CAP PO SCH (21:00)
[2020-09-18] MEDS ORDERED: METOPROLOL TARTRATE 50 MG TAB PO SCH (21:00)
[2020-09-18] MEDS ORDERED: FENOFIBRATE 160 MG TAB PO SCH (21:00)
[2020-09-18] MEDS ORDERED: ATORVASTATIN 20 MG TAB PO SCH (21:00)
[2020-09-19 02:02] VITALS: TEMP 98.1
[2020-09-19] MEDS: SODIUM CHLORIDE 0.9% 1,000 ML IV SCH ×2 (03:59→06:17)
[2020-09-19 08:09] LABS: African American GFR (CKD) 62 (>60 ml/min/1.73 sqM); Anion Gap 8 mmol/L; Blood Urea Nitrogen 18 mg/dL (9-20); Calcium 9.5 mg/dL (8.4-10.2); Carbon Dioxide 25 mmol/L (22-30); Chloride 106 mmol/L (98-107); Glucose 120 mg/dL (74-99); Non-African American GFR(CKD) 54 (>60 ml/min/1.73 sqM); Potassium 4.1 mmol/L (3.5-5.1); Sodium 139 mmol/L (137-145)
[2020-09-19] MEDS: amLODIPine 5 MG TAB PO SCH (08:31)
[2020-09-19] MEDS: MONTELUKAST 10 MG TAB PO SCH (08:31)
[2020-09-19] MEDS: METOPROLOL TARTRATE 50 MG TAB PO SCH (08:31)
[2020-09-19] MEDS: PANTOPRAZOLE 40 MG TABLET PO SCH (08:32)
[2020-09-19] MEDS: allopurinoL 100 MG TAB PO SCH (08:32)
[2020-09-19] MEDS: AZELASTINE 137MCG/SPRAY EA NOSTRIL SCH (08:32)
[2020-09-19] MEDS: DORZOLAMIDE-TIMOLOL 2.23%/0.68 10ML BTL BOTH EYES SCH (08:32)
[2020-09-19] MEDS: ASPIRIN 81 MG PO SCH (08:32)
[2020-09-19] MEDS: TAMSULOSIN 0.4 MG CAP.ER.24H PO SCH (08:32)
[2020-09-19] MEDS: KETOTIFEN 0.025% OPHTH DROPS 5 ML BTL BOTH EYES SCH (08:33)
[2020-09-19] MEDS: LISINOPRIL-HCTZ 20-12.5 MG 1 EACH TAB PO SCH (08:34)
[2020-09-19] MEDS: LOTEPREDNOL ETABONATE 0.2% RIGHT EYE SCH (08:34)
[2020-09-19 08:53] VITALS: BP 154/79; PULSE 77; RESP 16
[2020-09-19] MEDS ORDERED: ASPIRIN 325 MG TAB PO SCH (09:00)
--- NOTE | 2020-09-19 09:28 | PN ---
PROGRESS NOTE Mr. Fish has hypertension and hyperlipidemia. He came in yesterday with severe epigastric/lower chest pain with radiation to the back. I performed a CT angio which was negative for any aortic pathology. He is doing well. Blood pressure control has been optimized with addition of beta denise. He is asymptomatic ambulating without symptoms Vital are stable. No JVD. S1, S2 heard normally. Lungs are clear. Abdomen and lower extremity exam unchanged. Plan is to increase activity and he can be discharged and he will follow up with his primary care physician and I will be happy to see him in the office in the next 2-3 weeks. The patient can be discharged on current medical regimen. MMODL / IJN: [id number] /
[2020-09-19 09:57] LABS: Chol/HDL Ratio 4.39; LDL Cholesterol,Calculated 43.2 mg/dL (0.0-131.0); VLDL Calculation 51.8 mg/dL (5.00-40.00)
--- NOTE | 2020-09-19 10:20 | P.DS ---
Providers Date of admission: 09/18/20 03:35 Attending physician: Herbie Langford Consults: 09/18/20 03:35 Consult Physician Routine Consulting Provider: Manuel Molina Consult Reason/Comments: Chest pain Do you want consulting provider notified?: Yes Primary care physician: Herbie Langford [facility] Course: 75 years old male with past medical history of hypertension, hyperlipidemia, osteoarthritis, GERD, BPH, history of exposure to hepatitis C with fatty liver disease patient of Dr. Langford comes in with acute severe epigastric pain that started while patient was sleeping on the couch and woke the patient up at night. Patient did not have any food prior to the epigastric pain. She did he denies any history of alcohol use. He did have a stress test 1 year ago which was normal. He denies any dizziness, shortness of breath, palpitation, sweating along with the pain. The to the epigastric pain is better. He denies any radiation of pain to the left arm. He denies any orthopnea or PND. He is a nonsmoker and does not drink alcohol. In the ER patient's vitals suggested temp 97.4 pulse 96 respiratory rate 19 blood pressure 179/96 oxygen saturation are 99% on room air. Labs reviewed patient had a hemoglobin of 12.8 BUN 21 creatinine 1.13 glucose 133 troponin 3 negative. UA was negative for infection lipase was normal. Patient underwent CT of the abdomen and pelvis with clinic diverticulosis no gallbladder inflammation no pancreatic inflammation. Did have some nonspecific retroperitoneal lymph nodes. CT of the thoracic aorta was obtained to rule out aneurysm which was negative f or dissection or aneurysm. Patient does take pantoprazole for acid reflux but felt the pain was different as compared to his previous discomfort. 09/19 patient examined bedside. No longer has the chest pain.Vitals are stable temperature 98.1 pulse 77 respiratory rate 16 blood pressure 154/79. Patient being seen by cardiology and has cleared the patient. Patient would see Dr. Wall as outpatient Discharge diagnosis #1 atypical chest pain likely secondary to hypertension. ACS ruled out. #2 Hypertension - uncontrolled. #3 Gout #4 HLD #5 ALLERGIC rhinitis #6 BPH #7 GERD #8 epigastric pain likley gastritis Disposition - Home with self care Patient Condition at Discharge: Good Plan - Discharge Summary Discharge Rx Participant: No New Discharge Prescriptions: New Aspirin 81 mg PO DAILY chew Atorvastatin [Lipitor] 20 mg PO HS #30 tab Metoprolol Tartrate [Lopressor] 50 mg PO BID #60 tab Continue Tamsulosin [Flomax] 0.4 mg PO DAILY Niacin 500 mg PO DAILY Fenofibrate Nanocrystallized [Fenofibrate] 145 mg PO HS Febuxostat [Uloric] 80 mg PO DAILY Aspirin [[place] Aspirin EC] 81 mg PO DAILY Azelastine HCl [Optivar 0.05% Ophth Soln] 1 drop BOTH EYES BID amLODIPine [Norvasc] 5 mg PO DAILY Dorzolamide/Timolol/Pf [Dorzolamide 2%-Timolol 0.5%] 1 drop BOTH EYES BID Azelastine HCl 1 spray EA NOSTRIL DAILY lisinopriL 10 mg PO DAILY Hydrocortisone Cream [Hydrocortisone 2.5% Cream] 1 applic TOPICAL BID PRN PRN Reason: Rash Montelukast [Singulair] 10 mg PO DAILY Cholecalciferol [Vitamin D3 (25 Mcg = 1000 Iu)] 25 mcg PO DAILY Changed Pantoprazole [Protonix] 40 mg PO BID #60 tab Discharge Medication List Febuxostat [Uloric] 80 mg PO DAILY 03/26/17 [History] Fenofibrate Nanocrystallized [Fenofibrate] 145 mg PO HS 03/26/17 [History] Niacin 500 mg PO DAILY 03/26/17 [History] Tamsulosin [Flomax] 0.4 mg PO DAILY 03/26/17 [History] Aspirin [[place] Aspirin EC] 81 mg PO DAILY 10/15/18 [History] Aspirin 81 mg PO DAILY chew 09/18/20 [Rx] Atorvastatin [Lipitor] 20 mg PO HS #30 tab 09/18/20 [Rx] Azelastine HCl 1 spray EA NOSTRIL DAILY 09/18/20 [History] Azelastine HCl [Optivar 0.05% Ophth Soln] 1 drop BOTH EYES BID 09/18/20 [History] Cholecalciferol [Vitamin D3 (25 Mcg = 1000 Iu)] 25 mcg PO DAILY 09/18/20 [History] Dorzolamide/Timolol/Pf [Dorzolamide 2%-Timolol 0.5%] 1 drop BOTH EYES BID 09/18/20 [History] Hydrocortisone Cream [Hydrocortisone 2.5% Cream] 1 applic TOPICAL BID PRN 09/18/20 [History] Metoprolol Tartrate [Lopressor] 50 mg PO BID #60 tab 09/18/20 [Rx] Montelukast [Singulair] 10 mg PO DAILY 09/18/20 [History] Pantoprazole [Protonix] 40 mg PO BID #60 tab 09/18/20 [Rx] amLODIPine [Norvasc] 5 mg PO DAILY 09/18/20 [History] lisinopriL 10 mg PO DAILY 09/18/20 [History] Follow up Appointment(s)/Referral(s): Rob Wall MD [STAFF PHYSICIAN] - 1 Week Herbie Langford MD [Primary Care Provider] - 1-2 days Patient Instructions/Handouts: Chest Pain (ED) Discharge Disposition: HOME SELF-CARE
== END 2020-09-19 10:55 | disposition home or self-care (01) ==
LOC: EC 23:33 → 6NMEDSUR 09-18 03:35
PROVIDERS: ADMIT Internal Medicine Geriatric Medicine; ATTEND Internal Medicine Geriatric Medicine
DX: R07.89 Other chest pain (principal); I10 Essential (primary) hypertension; R07.2 Precordial pain; J45.909 Unspecified asthma, uncomplicated; M10.9 Gout, unspecified; E78.5 Hyperlipidemia, unspecified; Z20.822 Contact with and (suspected) exposure to COVID-19; N40.0 Benign prostatic hyperplasia without lower urinary tract symptoms; R16.2 Hepatomegaly with splenomegaly, not elsewhere classified; K21.9 Gastro-esophageal reflux disease without esophagitis; K57.90 Diverticulosis of intestine, part unspecified, without perforation or abscess without bleeding; K29.70 Gastritis, unspecified, without bleeding; I45.10 Unspecified right bundle-branch block; M54.9 Dorsalgia, unspecified; N28.9 Disorder of kidney and ureter, unspecified; M19.90 Unspecified osteoarthritis, unspecified site; K76.0 Fatty (change of) liver, not elsewhere classified; Z79.82 Long term (current) use of aspirin; Z79.899 Other long term (current) drug therapy; Z91.018 Allergy to other foods; Z86.79 Personal history of other diseases of the circulatory system; Z82.3 Family history of stroke; Z82.49 Family history of ischemic heart disease and other diseases of the circulatory system; Z80.9 Family history of malignant neoplasm, unspecified
CPT/HCPCS: 96374; 96375; 99285; 36415; 93005; 85379; 80061; 80053; 80048; 82150; 83690; 84484; 85025; 81003; 87635; 76705; 71275; 74176; 74174; G0378 ×2; J1170; Q9967

== ENCOUNTER → 2020-11-08 | Outpatient (CLI) | payer MEDICARE ==
[2020-11-08 11:31] LABS: Chol/HDL Ratio 3.97; LDL Cholesterol,Calculated 50.4 mg/dL (0.0-131.0); VLDL Calculation 47.6 mg/dL (5.00-40.00)
== END | disposition home or self-care (01) ==
LOC: LABWHC1 07:10
PROVIDERS: ATTEND Internal Medicine Interventional Cardiology
DX: E78.5 Hyperlipidemia, unspecified (principal)
CPT/HCPCS: 36415; 80061; 82550; 84450; 84460